=== PATIENT | male | born 1945 | race Caucasian/White ===

== ENCOUNTER 2019-01-24 19:23 | Inpatient (IN) | payer MEDICARE, OTHER ==
[~2019-01-24] VITALS: Ht 180.3 cm; Wt 64.0 kg
[2019-01-24] MEDS ORDERED: NACL 0.9% 1,000 ML IV SCH (20:04)
[2019-01-24 20:13] VITALS: BP 137/93
[2019-01-24 20:29] LABS: BASOPHILS % (AUTO) 0.1 % (0.0-2.0); EOSINOPHILS % (AUTO) 0.1 % (0.0-4.0); HEMATOCRIT 35.7 % (36-52); HEMOGLOBIN 11.7 g/dL (12.0-18.0); LYMPHOCYTES # (AUTO) 1.4 K/uL (2.0-11.5); LYMPHOCYTES % (AUTO) 10.4 % (20.5-51.1); MEAN CORPUSCULAR HEMOGLOBIN 28 pg (27-31); MEAN CORPUSCULAR HGB CONC 33 g/dL (33-37); MEAN CORPUSCULAR VOLUME 84.6 fL (80-94); MONOCYTES # (AUTO) 0.7 K/uL (0.8-1.0); MONOCYTES % (AUTO) 5.5 % (1.7-9.3); NEUTROPHILS % (AUTO) 83.9 % (42.2-75.2); PLATELET COUNT (AUTO) 409 K/uL (140-450); RED BLOOD CELL COUNT(AUTO) 4.23 MIL/uL (4.20-6.10); RED CELL DISTRIBUTION WIDTH 15.5 % (11.6-13.7); WHITE BLOOD COUNT (AUTO) 13.2 K/uL (4.8-10.8)
--- NOTE | 2019-01-24 20:29 | NUR ---
BIBA REPORTS BEING FOUND OUTSIDE ON SIDE OF ROAD COVERED IN FECES. NO MEDICAL COMPLAINTS. [facility] GRAVELY DISABLED HOLD. WOUNDS NOTED ON BL ARMS, LEGS, FEET, HANDS, SACRAL AREA AND PHONG AREA. PATIENT STATES HE HAS HAD THEM FOR A LONG TIME.
[2019-01-24 20:45] LABS: ANION GAP 13.2 (8-16); CARBON DIOXIDE 27.6 mmol/L (21-32); CHLORIDE 100 mmol/L (98-107); CREATININE 1.5 mg/dL (0.7-1.3); GLUCOSE 146 mg/dL (74-106); POTASSIUM 3.8 mmol/L (3.5-5.1); SODIUM SERUM 137 mmol/L (136-145); UREA NITROGEN, BLOOD 33 mg/dL (7-18)
[2019-01-24 20:51] LABS: ASPARTATE AMINOTRANSFERASE 25 U/L (15-37); TOTAL BILIRUBIN 0.5 mg/dL (0.0-1.0)
--- NOTE | 2019-01-24 21:45 | NUR ---
patient given urinal to provide urine sample.
[2019-01-24] MEDS ORDERED: cefTRIAXone 1,000 MG VIAL ONE (21:48)
[2019-01-24] MEDS ORDERED: NACL 0.9% 1,000 ML IV ONE (22:20)
[2019-01-24 22:27] LABS: APPEARANCE,URINE CLEAR (CLEAR); BILIRUBIN,URINE NEGATIVE (NEGATIVE); BLOOD, URINE 1+ (NEGATIVE); COLOR,URINE YELLOW (YELLOW); LEUKOCYTE ESTERASE ,URINE TRACE (NEGATIVE); NITRITE, URINE NEGATIVE (NEGATIVE); UGLUCOSE NEGATIVE (NEGATIVE)
[2019-01-24 22:42] LABS: RBC,URINE 0-5 /HPF (0-5); WBC,URINE 0-5 /HPF (0-5)
[2019-01-24 23:00] VITALS: BP 162/72
--- NOTE | 2019-01-24 23:00 | NUR ---
RECEIVED PT FROM ER VIA GURHUMERA REPORT GIVEN AT BED SIDE PT IS AAOX4 COOPERATIVE TO FOLLOW COMMANDS VERBALIZED NEEDED AND AT ROOM AIR 100% 02 SAT, IV ON LEFT AC GAUGE # 20 NS BOLUS INFUSING PT HAS MULTILLPLES SCABS AND OOPEN WOUNDS ON BILATERAL LOWER EXTREMITIES, RT BUTTOCK AND RT HIIIP AND GENITALES AND INTER LEGS WITH MULTILPLES SCRATCHES PICTURES WERE TAKEN IN ER SWAB NARES FOR MRSA SCREENING TAKEN AND SENT OT LAB PT IS ORIENTED TO THE FLOOR CALL LLIGHT WITHIN REACH,
--- NOTE | 2019-01-24 23:08 | NUR ---
Patient will be admitted to care of [facility]. Admited to Dr. Lamar. went to room 107-b. Belongings list completed. Report to cristina.
[2019-01-24] MEDS ORDERED: ACETAMINOPHEN 325 MG TAB PO PRN (23:25)
[2019-01-24] MEDS ORDERED: LORazepam 2 MG/ML VIAL IVP PRN (23:25)
[2019-01-24] MEDS ORDERED: ZOLPIDEM 5 MG TAB PO PRN (23:25)
[2019-01-24] MEDS ORDERED: MORPHINE SULFATE 2 MG/ML SYR IVP PRN (23:25)
[2019-01-24] MEDS ORDERED: BISACODYL 10 MG SUPP RC PRN (23:25)
[2019-01-24] MEDS ORDERED: POTASSIUM CHLORIDE 40 MEQ, LIDOCAINE 1% 25 MG in NACL 0.9% 250 ML IV PRN (23:25)
[2019-01-24] MEDS ORDERED: HYDROcodone/APAP 5/325 MG 1 TAB TAB PO PRN ×2 (23:25)
[2019-01-24] MEDS ORDERED: guaiFENesin DM 200/20 MG-10 ML 10 ML UDC PO PRN (23:25)
[2019-01-24] MEDS ORDERED: ALUMINUM HYD/MAG/SIMETHICONE 30 ML UDC PO PRN (23:25)
[2019-01-24] MEDS ORDERED: ONDANSETRON 4 MG/2 ML VIAL IVP PRN (23:25)
[2019-01-24] MEDS ORDERED: POTASSIUM CHLORIDE 10 MEQ TABER PO PRN (23:25)
[2019-01-24] MEDS ORDERED: IPRATROPIUM 0.02% 0.5 MG/2.5 ML NEBU INH PRN (23:25)
[2019-01-24] MEDS ORDERED: MAG SULF 2000 MG/WATER PREMIX 50 ML IV PRN (23:25)
[2019-01-24] MEDS ORDERED: DOCUSATE SODIUM 250 MG GELCAP PO PRN (23:25)
[2019-01-24] MEDS ORDERED: SODIUM PHOSPHATE 118 ML ENEM RC PRN (23:25)
[2019-01-24] MEDS ORDERED: ACETAMINOPHEN 650 MG SUPP RC PRN (23:25)
[2019-01-24] MEDS ORDERED: diphenhydrAMINE 50 MG/ML VIAL IVP PRN (23:25)
[2019-01-24] MEDS ORDERED: ALBUTEROL 0.083% 2.5 MG/3 ML NEBU INH PRN (23:25)
[2019-01-24] MEDS ORDERED: MAGNESIUM OXIDE 400 MG TAB PO PRN (23:25)
[2019-01-24] MEDS: cloNIDine 0.1 MG TAB PO PRN (23:36)
[2019-01-24] MEDS: CLINDAMYCIN 300 MG in DEXTROSE 5% 50 ML IV SCH (23:38)
[2019-01-24] MEDS: NACL 0.9% 1,000 ML IV SCH (23:39)
[2019-01-24] MEDS ORDERED: CLINDAMYCIN 600 MG/4 ML VIAL ONE (23:44)
--- NOTE | 2019-01-25 | NUR ---
LOWER EXTREMITIES OPEN WOUND WERE CLEANED WITH WATER AND MILD SOAP AND WRAPPED WITH NOT ADHESIVE DRESSING
[2019-01-25 01:00] VITALS: BP 111/58
--- NOTE | 2019-01-25 01:55 | NUR ---
PT SLEEPING WELL NOT DISTRESS NOTED IV ON LEFT AC INFUSING WELL PT HAS BEEN REPOSITIONED Q2H
--- NOTE | 2019-01-25 04:00 | NUR ---
SPONGE BATH GIVEN LINEN CHANGED REPOSITIONED NOT DISTRESS NOTED AT THIS TIME PT ON CLOSE MONITORING
[2019-01-25] MEDS ORDERED: CLINDAMYCIN 600 MG/4 ML VIAL ONE (05:34)
[2019-01-25] MEDS: CLINDAMYCIN 300 MG in DEXTROSE 5% 50 ML IV SCH ×3 (05:55→17:00)
[2019-01-25] MEDS: NACL 0.9% 1,000 ML IV SCH (05:59)
--- NOTE | 2019-01-25 06:30 | NUR ---
PT SLEEPING WELL, NOT DISTRESS NOTED IV ON LEFT AC INFUSING WELL PT WILL BE ENDORSED TO DAY SHIFT NURSE FOR CONTINUE OF CARE
--- NOTE | 2019-01-25 07:20 | NUR ---
RECEIVED REPORT FROM MOTOR VEHICLE ESCORT DRIVER NURSE, PT ASLEEP EASILY AWAKENED, CALM WITH NO ACUTE DISTRESS, REQUESTS, OR PAIN AT THIS TIME. IV SITE INTACT, INFUSING IVF PER MD ORDERS. AOX4, ASSESSED SKIN, OPEN AND CLOSED ABRASIONS AND SCABS TO BLE DRESSINGS CDI. .BUTTOCKS, SACRUM, GROIN, OPEN AND CLOSED ABRASIONS AND SCABS WELL TO THESE AREAS. ALL SAFETY PRECAUTIONS IN PLACE. WILL CONTINUE TO MONITOR.
--- NOTE | 2019-01-25 09:20 | NUR ---
PHYSICAL THERAPIST HERE TO WORK WITH PATIENT.
[2019-01-25] MEDS ORDERED: Z-GUARD PASTE TP PRN (11:30)
[2019-01-25] MEDS ORDERED: HYDRAGUARD CREAM TP PRN (11:30)
[2019-01-25] MEDS ORDERED: THERAHONEY GEL 42.5 GM TP PRN (11:30)
--- NOTE | 2019-01-25 11:40 | NUR ---
PT SLEEPING IN BED, BREATHING EQUAL AND UNLABORED WITH NO OBVIOUS SIGNS OF PAIN OR DISCOMFORT.
[2019-01-25] MEDS: THERAHONEY GEL 42.5 GM TP SCH (13:00)
[2019-01-25] MEDS: HYDRAGUARD CREAM TP SCH (13:44)
[2019-01-25] MEDS: Z-GUARD PASTE TP SCH (13:45)
--- NOTE | 2019-01-25 13:45 | NUR ---
WILL PERFORM WOUND CARE WITH ELVIS AFTER PODIATRY ASSESSES PATIENT TODAY.
--- NOTE | 2019-01-25 13:53 | NUR ---
WOUND CARE EVALUATION NOTE: REASON FOR EVALUATION: MULTIPLE WOUNDS WOUND SKIN ASSESSMENT DONE WITH THIS 73 Y/O MALE PT ADMITTED TO [facility] WITH INITIAL DX 51/50. PAST MEDICAL HX UN-KNOW. PT VERBALIZES AND STATED THAT HE HAS THE LEGS ULCERS FOR AN UN-KNOW PERIOD OF TIME FROM SOAKED SOCKS AND BOOTS. ALL ABOVE INFORMATION OBTAINED FROM PT. AND ADMISSION H&P. PT IS AWAKE. SKIN IS WARM AND DRY, BLE FEW HAIR GROWTH, NO EDEMA. DORSAL PEDAL PULSES DIMINISHED. ULCERATIONS X 10 TOES. INCONTINENT OF URINE AND BOWEL X1 DURING ASSESSMENT. PT SAID HE WILL START TO USE URINAL, URINAL PLACE AT BED SIDE. PLAN OF CARE DISCUSSED WITH PRIMARY RN. AND PT. DR. MARCUS VISIT PT AT BED SIDE DURING ASSESSMENT RECOMMENDATION DISCUSSED. STATED IT IS NOT VASCULAR ULCER, BELIEVES IT IS FROM BOOTS. INTEGUMENTARY: -CONTACT DERMATITIS TO R/L GROINS MULTIPLE RASHES AND DRY SCABS -LEFT HIP 1X1CM BROWN SCAB PHONG WOUND SKIN REDNESS EXTENDED TO LEFT BUTTOCK MAD -SEVERE MOISTURE ASSOCIATE DERMATITIS (MAD) TO: TO R/L POSTERIOR, MEDIAL THIGHS EXTENDED TO PERINEUM, RIGHT AND LEFT BUTTOCKS AND SCROTAL WITH LARGEST SKIN EROSION TO RIGHT BUTTOCK 5X3X0.2, WOUND BED PALE PINK WITH PHONG WOUND SKIN ERYTHEMA AND DENUDED -ULCER UN-STAGEABLE LEFT MEDIAL MALLEOLUS EXTENDED TO ACHILLES AND LEFT DORSAL FEET 12X9 CM, DEPTH UTD, WOUND BED INFECTED TISSUE 100% YELLOW SLOUGH TISSUE, MOIST, MILD ODOR, PHONG WOUND SKIN ERYTHEMA -ULCER UN-STAGEABLE RIGHT LATERAL MALLEOLUS EXTENDED TO ACHILLES AND RIGHT DORSAL FEET 16X10 CM, DEPTH UTD WOUND BED INFECTED TISSUE 100% BROWN SLOUGH TISSUE, MOIST, MILD ODOR, PHONG WOUND SKIN ERYTHEMA -ULCER RIGHT MEDIAL MALLEOLUS 5X6X 0.1CM, WOUND BED INFECTED TISSUE 100% PALE PINK TISSUE, MOIST, MILD ODOR, PHONG WOUND SKIN ERYTHEMA - ULCER UN-STAGEABLE X 10 TOES WITH PIN POINT FRICTION LIKED OPEN WOUNDS TO EACH TOE AND LARGEST MEASURE ON RIGHT 2ND DIGIT 2X1CM WOUND BED IS % YELLOW SLOUGH TISSUE, MOIST , MILD ODOR, PHONG WOUND SKIN ERYTHEMA - SACRALCOCCYX 2X2CM PRESSURE ULCER INJURY STAGE 1 NON-BLANCHABLE SKIN INTACT -RIGHT AND LEFT HEELS PRESSURE ULCER INJURY NON-BLANCHABLE SKIN INTACT WITH MUSHY SKIN RECOMMENDATIONS: -VENOUS AND ARTERIAL ULTRASOUND -PODIATRY/ SURGEON CONSULT FOR DEBRIDEMENT -APPLY HYDRAGUARD TO R/L GROINS DRY SCABS BID AND PRN IF SOILING -APPLY Z-GUARD TO R/L POSTERIOR, MEDIAL THIGHS EXTENDED TO PERINEUM, RIGHT AND LEFT BUTTOCKS AND SCROTAL BID AND PRN IF SOILING - CLEANSE LEFT AND RIGHT LATERAL MALLEOLUS EXTENDED TO ACHILLES AND DORSAL FEET WITH WOUND CLEANSING SOLUTION AND APPLY THERAHONEY GEL COVER WITH DRY DRESSING QD AND PRN IF SOILING - CLEANSE LEFT AND RIGHT DORSAL FEET AND 10 TOES WITH WOUND CLEANSING SOLUTION AND APPLY THERAHONEY GEL TO ULCERATIONS COVER WITH ADAPTIC DRESSING WRAP WITH KERLIX ROLLS LIGHTLY QMWF AND PRN IF SOILING -APPLY FORM DRESSING TO SACROCOCCYX Q7 DAYS AND PRN IF SOILING PREVENTION -APPLY HEEL PROTECTORS TO BOTH HEELS AT ALL TIMES -OFFLOAD BILATERAL HEELS BY PLACING PILLOWS UNDER CALVES UNLESS OTHERWISE CONTRAINDICATED -PRESSURE REDISTRIBUTION SURFACE THERAPY -TURN AND REPOSITION Q2H, OFFLOAD SACRALCOCCYX AND BUTTOCKS BY TURNING RIGHT AND LEFT -CONTINUE TO FOLLOW RD RECOMMENDATIONS ALL ABOVE RECOMMENDATIONS DISCUSSED WITH PRIMARY RN. WILL FOLLOW UP PT Q7-10 DAYS. PLEASE CONTACT WOUND CARE NURSE FOR ANY QUESTION AND CHANGE OF WOUND CONDITION.
--- NOTE | 2019-01-25 13:55 | NUR ---
NOTIFIED DR. MENDOZA [phone] OF NEW CONSULT ORDER- BLE WOUNDS. DR. MENDOZA AWARE.
[2019-01-25 16:00] VITALS: BP 128/71
--- NOTE | 2019-01-25 16:33 | NUR ---
PT RESTING IN BED, NO C/O PAIN OR DISCOMFORT. ALL SAFETY PRECAUTIONS IN PLACE, WILL CONTINUE TO MONITOR.
--- NOTE | 2019-01-25 17:36 | NUR ---
PT INQUIRING ABOUT WHEN PODIATRY WILL COME SEE HIM. INFORMED PATIENT THAT PODIATRY HAS ALREADY BEEN INFORMED TO CONSULT, POSSIBLY TODAY.
--- NOTE | 2019-01-25 19:12 | NUR ---
ENDORSED PLAN OF CARE TO OPERATOR CAVITY PUMP RN. PT IN STABLE CONDITION.
--- NOTE | 2019-01-25 19:21 | NUR ---
RECEIVED FROM AM RN IN BED SLEEPING. REFUSING TO TALK AND WAKE UP AT THIS TIME. PER AM RN PT. ABLE TO VERBALIZE SIMPLE NEEDS. CALL LIGHT WITH IN REACH. DX. CELLULITIS. NEEDS WILL BE ANTICIPATED AND WILL BE MET.
--- NOTE | 2019-01-25 21:58 | NUR ---
PT. AWAKE AT THIS TIME AND CLEANED UP BY LACE BURN OUT TENDER AND ME RT HAD A BIG BM AND PT. PLAYED WITH IT. ABLE TO VERBALIZE NEEDS WELL. RE-ORIENTED TO CALL LIGHT USE AND NOT TO PLAY WITH HIS BM. "OK" PILLOW SUPPORT TO BILATERAL LOWER EXTREMITIES AND WITH HEEL PROTECTORS IN PLACE. BED ALARM ON.
[2019-01-26] MEDS: CLINDAMYCIN 300 MG in DEXTROSE 5% 50 ML IV SCH ×5 (00:14→23:34)
--- NOTE | 2019-01-26 00:15 | NUR ---
NEW IVF SITE INSERTED TO LEFT FOREARM#22 RT OLD IVF SITE TO AC INFILTRATED. TOLERATED WELL. GOOD BLOOD RETURN. NO PAIN COMPLAINTS DONE.
[2019-01-26 00:23] VITALS: BP 129/57
[2019-01-26] MEDS: Z-GUARD PASTE TP SCH ×2 (01:00→11:40)
[2019-01-26] MEDS: HYDRAGUARD CREAM TP SCH ×2 (01:00→11:40)
[2019-01-26] MEDS: NACL 0.9% 1,000 ML IV SCH ×3 (02:12→23:02)
--- NOTE | 2019-01-26 02:16 | NUR ---
PT. SLEEPING. WOKE UP EASILY WHEN CALLED BY NAME OR TOUCHED. MADE PT. CHANGE POSITION RT IVF ALARMING . FOLLOWS REQUESTS . IVF SITE WITH GOOD BLOOD RETURN.
--- NOTE | 2019-01-26 04:30 | NUR ---
PT. AM PERSONAL HYGIENE RENDERED BY BILLBOARD POSTER. ABLE TO FOLLOW REQUESTS TO MOVE AND CHANGE POSITION . VERBALIZES WELL. CLEAR SPEECH. MAXIMUM CARE RENDERED AT THIS TIME RT WEAKNESS. BED ALARM ON.
[2019-01-26 07:20] LABS: ANION GAP 11.3 (8-16); CARBON DIOXIDE 26.5 mmol/L (21-32); CHLORIDE 105 mmol/L (98-107); GLUCOSE 103 mg/dL (74-106); POTASSIUM 3.8 mmol/L (3.5-5.1); SODIUM SERUM 139 mmol/L (136-145); UREA NITROGEN, BLOOD 20 mg/dL (7-18)
[2019-01-26 07:29] LABS: BASOPHILS % (AUTO) 0.3 % (0.0-2.0); EOSINOPHILS # (AUTO) 0.1 K/uL (0-0.4); EOSINOPHILS % (AUTO) 1.3 % (0.0-4.0); HEMATOCRIT 32.1 % (36-52); HEMOGLOBIN 10.6 g/dL (12.0-18.0); LYMPHOCYTES # (AUTO) 1.6 K/uL (2.0-11.5); LYMPHOCYTES % (AUTO) 14.9 % (20.5-51.1); MEAN CORPUSCULAR HEMOGLOBIN 28 pg (27-31); MEAN CORPUSCULAR HGB CONC 33 g/dL (33-37); MONOCYTES # (AUTO) 0.7 K/uL (0.8-1.0); MONOCYTES % (AUTO) 6.9 % (1.7-9.3); NEUTROPHILS # (AUTO) 8.3 K/uL (1.8-7.7); NEUTROPHILS % (AUTO) 76.6 % (42.2-75.2); PLATELET COUNT (AUTO) 370 K/uL (140-450); RED BLOOD CELL COUNT(AUTO) 3.78 MIL/uL (4.20-6.10); RED CELL DISTRIBUTION WIDTH 15.2 % (11.6-13.7); WHITE BLOOD COUNT (AUTO) 10.9 K/uL (4.8-10.8)
--- NOTE | 2019-01-26 07:30 | NUR ---
Received report from pm nurse Macy. Pt in bed, asleep, respirations even & nonlabored. Left hand IV intact with ongoing NS @ 75ml/hr. Call light within reach.
[2019-01-26 08:00] VITALS: BP 142/72
[2019-01-26] MEDS: THERAHONEY GEL 42.5 GM TP SCH (11:39)
--- NOTE | 2019-01-26 12:40 | NUR ---
Initiated wound tx at 1215. Pt c/o 03/04 pain to bilat feet wound sites during removal of old dressings. Pain meds administered then pt agreed to resume wound tx. Wound tx completed.
[2019-01-26 16:00] VITALS: BP 138/74
--- NOTE | 2019-01-26 19:30 | NUR ---
RECEIVED FROM AM RN IN BED SLEEPING. WAKES UP WHEN TOUCHED OR CALLED BY NAME. ABLE TO VERBALIZE SIMPLE NEEDS IN BULGARIAN WELL. NEEDS WILL BE ANTICIPATED AND WILL BE MET THIS SHIFT. 5150 STATUS RT GRAVELY DISABLED. CALL LIGHT WITH IN REACH AND BED ALARM ON.
--- NOTE | 2019-01-26 19:30 | NUR ---
REPORT GIVEN TO PM NURSE SHONDA. PT RESTING IN BED, AWAKE, NO C/O DISCOMFORT. LEFT FOREARM IV INTACT WITH ONGOING NS @ 75ML/HR. CALL LIGHT WITHIN REACH.
[2019-01-26 23:37] VITALS: BP 126/72
--- NOTE | 2019-01-26 23:39 | NUR ---
PT. SLEEPING. WAKES UP EASILY WHEN TOUCHED OR CALLED BY NAME. ABLE TO VERBALIZE SIMPLE NEEDS. NO SOB. IVF SITE TO LEFT HAND #[address] AND PATENT. GOOD BLOOD RETURN. BED ALARM ON.
[2019-01-27] VITALS: BP 126/72
[2019-01-27] MEDS: Z-GUARD PASTE TP SCH ×2 (01:00→13:00)
[2019-01-27] MEDS: HYDRAGUARD CREAM TP SCH ×2 (01:00→13:00)
--- NOTE | 2019-01-27 03:00 | NUR ---
SLEEPING. NO RESTLESSNESS. CALL LIGHT WITH IN REACH.
--- NOTE | 2019-01-27 04:27 | NUR ---
AM PERSONAL HYGIENE RENDERED . SLEPT WELL THIS SHIFT. NO RESTLESSNESS. PT. ABLE TO VERBALIZE SIMPLE NEEDS. DENIES PAIN. IVF SITE INTACT AND PATENT.
[2019-01-27] MEDS: CLINDAMYCIN 300 MG in DEXTROSE 5% 50 ML IV SCH ×3 (05:09→18:23)
--- NOTE | 2019-01-27 06:27 | NUR ---
PT. COMFORTABLE. AWAKE AND CHANGING POSITION . PT. INDEPENDENT IN TURNING SELF. ABLE TO ANSWER SIMPLE QUESTIONS. PROVIDED WITH SNACK RT HUNGRY. WILL ENDORSE TO AM RN FOR CONTINUITY OF CARE.
--- NOTE | 2019-01-27 07:20 | NUR ---
Received report from pm nurse Macy. Pt asleep in bed, respirations even & nonlabored. L forearm IV intact with ongoing NS @ 75ml/hr. Call light within reach.
[2019-01-27 08:00] VITALS: BP 152/76
--- NOTE | 2019-01-27 11:45 | NUR ---
Pt in semi-fowlers in bed, no c/o pain/discomfort, respirations even & nonlabored. BLE wound dressings clean, dry, & intact with mild odor. Left forearm IV intact with ongoing NS @ 75ml/hr. Call light within reach.
[2019-01-27] MEDS: THERAHONEY GEL 42.5 GM TP SCH (13:00)
--- NOTE | 2019-01-27 13:30 | NUR ---
Dr. Pham came in to see pt. New order received for CBC & BMP for tomorrow am. Orders noted & carried out. Per Dr. Pham, no wound cx needed.
[2019-01-27 16:00] VITALS: BP 138/72
[2019-01-27] MEDS: NACL 0.9% 1,000 ML IV SCH (18:24)
--- NOTE | 2019-01-27 19:12 | NUR ---
Report given to pm nurse Bonnie.
--- NOTE | 2019-01-27 19:13 | NUR ---
RECEIVED FROM AM RN IN BED AWAKE, A o X 4. PT WANTING TO GO OUT OF BED. ASSISTED IN BED FOR BOWEL MVT, STILL W/ WOUNDS IN BILATERAL FOOT AND ANKLE W/ DRESSING IN PLACE.W/ MULTIPLE WOUNDS IN SACRAL BUTTOCKS. CLEANED PT AND TURNED HIM TO SIDE. 5150 STATUS RT GRAVELY DISABLED. FALL RISK PRECAUTION. CALL LIGHT WITH IN REACH AND BED ALARM ON.
[2019-01-27 20:00] VITALS: BP 140/70
--- NOTE | 2019-01-27 21:26 | NUR ---
PT C/O OF ITCHINESS ON THE BUTTOCKS, BILATERAL BUTTOCKS MULTIPLE ABRASION LEFT BUTTOCKS- WOUND 1CM X 1 CM X .5 CM. PHOTO TAKEN
[2019-01-28] MEDS: CLINDAMYCIN 300 MG in DEXTROSE 5% 50 ML IV SCH ×4 (00:35→17:03)
[2019-01-28] MEDS: HYDRAGUARD CREAM TP SCH ×2 (01:36→12:00)
[2019-01-28] MEDS: Z-GUARD PASTE TP SCH ×2 (01:37→12:00)
[2019-01-28 04:00] VITALS: BP 187/94
--- NOTE | 2019-01-28 04:27 | NUR ---
GAVE CLONIDINE AT 0427 ONE TIME ONLY, REASSESSMENT DUE AT 4458
[2019-01-28] MEDS: cloNIDine 0.1 MG TAB PO PRN ×2 (04:57→06:41)
--- NOTE | 2019-01-28 04:57 | NUR ---
BP 187/94, HR 61. GIVEN CLONIDINE ORDERED
--- NOTE | 2019-01-28 06:27 | NUR ---
BP AT 151/81, CT 58
[2019-01-28] MEDS: NACL 0.9% 1,000 ML IV SCH ×2 (07:20→20:39)
--- NOTE | 2019-01-28 07:22 | NUR ---
RECEIVED BEDSIDE REPORT FROM PLATFORM SUPERVISOR RN. PT IS RESTING IN BED, AOX3, CALM AND COOPERATIVE. NO C/O PAIN OR DISCOMFORT AT THIS TIME. LUNGS CTA. HEART RHYTHM REGULAR. BEDREST. USES URINAL AT BEDSIDE. WOUNDS THROUGHOUT, DRESSINGS C/D/I-SEE WOUND ASSESSMENT. B/L HEEL PROTECTORS IN PLACE. ALL SAFETY PRECAUTIONS IN PLACE, WILL CONTINUE TO MONITOR.
[2019-01-28 07:37] LABS: BASOPHILS % (AUTO) 0.5 % (0.0-2.0); EOSINOPHILS # (AUTO) 0.2 K/uL (0-0.4); EOSINOPHILS % (AUTO) 1.5 % (0.0-4.0); HEMATOCRIT 32.1 % (36-52); HEMOGLOBIN 10.7 g/dL (12.0-18.0); LYMPHOCYTES # (AUTO) 1.5 K/uL (2.0-11.5); LYMPHOCYTES % (AUTO) 13.5 % (20.5-51.1); MEAN CORPUSCULAR HEMOGLOBIN 28 pg (27-31); MEAN CORPUSCULAR HGB CONC 34 g/dL (33-37); MONOCYTES # (AUTO) 0.7 K/uL (0.8-1.0); MONOCYTES % (AUTO) 6.5 % (1.7-9.3); NEUTROPHILS # (AUTO) 8.5 K/uL (1.8-7.7); PLATELET COUNT (AUTO) 377 K/uL (140-450); RED BLOOD CELL COUNT(AUTO) 3.82 MIL/uL (4.20-6.10); RED CELL DISTRIBUTION WIDTH 15.1 % (11.6-13.7); WHITE BLOOD COUNT (AUTO) 10.8 K/uL (4.8-10.8)
[2019-01-28 08:00] VITALS: BP 157/84
[2019-01-28 08:33] LABS: ANION GAP 9.9 (8-16); CARBON DIOXIDE 28.9 mmol/L (21-32); CHLORIDE 105 mmol/L (98-107); GLUCOSE 89 mg/dL (74-106); POTASSIUM 3.8 mmol/L (3.5-5.1); SODIUM SERUM 140 mmol/L (136-145); UREA NITROGEN, BLOOD 19 mg/dL (7-18)
--- NOTE | 2019-01-28 08:52 | NUR ---
PT SITTING UP IN BED, WATCHING TV. NO S/S DISTRESS. ALL SAFETY PRECAUTIONS IN PLACE, WILL CONTINUE TO MONITOR.
--- NOTE | 2019-01-28 09:45 | NUR ---
PT HAD FORMED BM. CNAS AT BEDSIDE TO CLEAN PT. WILL APPLY FOAM DRESSING TO SACROCOCCYX WHEN PT IS CLEANED.
--- NOTE | 2019-01-28 10:32 | NUR ---
WOUND CARE COMPLETED- PER WOUND CARE ORDERS.
--- NOTE | 2019-01-28 11:30 | NUR ---
JANET IS HERE FROM [facility], NOTIFIED HER TO FIND PLACEMENT FOR THIS PATIENT, WILL CALL FOR UPDATE PER JANET.
--- NOTE | 2019-01-28 11:50 | NUR ---
ADMINISTERED SCHEDULED MEDICATIONS PER MD ORDERS. PT RESTING IN BED, AWAKE AND ALERT. ALL SAFETY PRECAUTIONS IN PLACE, WILL CONTINUE TO MONITOR.
[2019-01-28] MEDS: THERAHONEY GEL 42.5 GM TP SCH (12:00)
--- NOTE | 2019-01-28 12:31 | NUR ---
PT RESTING IN BED, WATCHING TV. ALL SAFETY PRECAUTIONS IN PLACE, WILL CONTINUE TO MONITOR.
--- NOTE | 2019-01-28 14:58 | NUR ---
PT RESTING IN BED, NO S/S DISTRESS. ALL SAFETY PRECAUTIONS IN PLACE, WILL CONTINUE TO MONITOR.
--- NOTE | 2019-01-28 15:30 | NUR ---
CALLED [facility] [phone] SPOKE TO SLIM FOR SNF PLACEMENT [facility], FAXED CLINICALS AND PATIENT INFORMATION TO [phone]. SLIM SAID SHE WILL CALL IF BED IS AVAILABLE.
--- NOTE | 2019-01-28 15:35 | NUR ---
CALLED [facility] [phone] SPLOKE WITH [facility] FOR [facility]ED PLAC[facility], FAXED PATIENT INFORMATION AND CLINICALS TO [phone]. INGE SAID SHE WILL CALL IF BED IS AVAILABLE.
[2019-01-28 16:00] VITALS: BP 154/88
--- NOTE | 2019-01-28 17:05 | NUR ---
SCHEDULED MEDICATIONS ADMINISTERED. PT RESTING IN BED, NO C/O PAIN OR DISCOMFORT. WILL CONTINUE TO MONITOR.
--- NOTE | 2019-01-28 19:17 | NUR ---
ENDORSED POC TO REHAB MANAGER RN. PT IN STABLE CONDITION.
--- NOTE | 2019-01-28 19:18 | NUR ---
RECEIVED BEDSIDE REPORT FROM AM SHIFT RN. PT IS RESTING IN BED, AOX3, CALM AND COOPERATIVE. NO C/O PAIN OR DISCOMFORT AT THIS TIME. NO SOB NOR RESPIRATORY DISTRESS NOTED. HEART RHYTHM REGULAR. BEDREST. WITH WOUNDS DRESSINGS DRESSING IN PLACE. B/L HEEL PROTECTORS IN PLACE. ALL SAFETY PRECAUTIONS IN PLACE, WILL CONTINUE TO MONITOR.
[2019-01-28 20:00] VITALS: BP 139/88
--- NOTE | 2019-01-28 21:24 | NUR ---
PT RESTING IN BED. VOIDED 1X ,TURNED PT TO SIDE. FREQUENT CHECKS DONE.
[2019-01-29] MEDS: CLINDAMYCIN 300 MG in DEXTROSE 5% 50 ML IV SCH ×3 (00:33→11:13)
[2019-01-29] MEDS: HYDRAGUARD CREAM TP SCH ×2 (00:34→12:22)
[2019-01-29] MEDS: Z-GUARD PASTE TP SCH ×2 (00:35→12:23)
--- NOTE | 2019-01-29 01:00 | NUR ---
DRESSING CHANGED ON LEFT ANKLE/FEET,RIGHT ANKLE/FEET NOT SOILED. PLACED TREATMENT ON THE BUTTOCKS, SACRUM AND PERINEAL/GROIN. PT TOLERATED PROCEDURE. WITH MINIMAL PAIN
--- NOTE | 2019-01-29 03:39 | NUR ---
BP= 167/78 HR 59, WILL GIVE CLONIDINE ORDERED.WILL MONITOR
[2019-01-29] MEDS: cloNIDine 0.1 MG TAB PO PRN (03:42)
[2019-01-29 03:49] VITALS: BP 167/76
--- NOTE | 2019-01-29 06:54 | NUR ---
PT SLEEPING IN BED BUT AROUSABLE BY NAME.PATIENT NOT IN RESPIRATORY DISTRESS, NO C/O OF PAIN. STABLE CONDITION AT THIS TIME. WILL ENDORSE TO NEXT SHIFT FOR CONTINUITY OF CARE.
--- NOTE | 2019-01-29 06:57 | NUR ---
CHANGED PT. TURNED PT FREQUENTLY, HOURLY ROUNDS DONE.
--- NOTE | 2019-01-29 06:58 | NUR ---
PT ASLEEP IN BED COMFORTABLE, WITH PILLOWS OFFLOADED PRESSURE SORES,NO PAIN AT THIS TIME . PT IN STABLE CONDITION AT THIS TIME. WILL ENDORSE TO NEXT SHIFT FOR CONTINUITY OF CARE.
--- NOTE | 2019-01-29 07:30 | NUR ---
RECEIVED BEDSIDE REPORT FROM SENIOR PLANNING ANALYST RN. PT IS RESTING IN BED, AOX3, CALM AND COOPERATIVE. NO C/O PAIN OR DISCOMFORT AT THIS TIME. LUNGS CTA. HEART RHYTHM REGULAR. BEDREST. USES URINAL AT BEDSIDE. WOUNDS THROUGHOUT, DRESSINGS ARE C/D/I-SEE WOUND ASSESSMENT. B/L HEEL PROTECTORS IN PLACE. ALL SAFETY PRECAUTIONS IN PLACE, WILL CONTINUE TO MONITOR.
[2019-01-29 08:00] VITALS: BP 149/83
[2019-01-29] MEDS: NACL 0.9% 1,000 ML IV SCH ×2 (10:00→11:16)
--- NOTE | 2019-01-29 10:29 | NUR ---
Director Of Scout Work Note: assisted facility follow up: Per Tanika from [facility] (two [facility]fs, same company) , they will review inquiry and she will call me back with decision on whether they can accept patient or not. Per Esther from [facility] , they do not have any beds available at this time. I faxed inquiries to Wilma Jauregui, [facility], and [facility].
--- NOTE | 2019-01-29 11:18 | NUR ---
SCHEDULED MEDICATIONS ADMINISTERED. PT IN STABLE CONDITION. RESTING IN BED, CALM, COOPERATIVE. NO C/O PAIN OR DISCOMFORT.
--- NOTE | 2019-01-29 12:01 | NUR ---
Tailings Dam Pumper Note: [facility] facility placement follow up: Per Riya from [facility] , patient was at their facility in December 2018 and signed AMA. She reported she would have to evaluate him in person and at today she is not able to. She told me she can come tomorrow to evaluate patient. Per Manny from [facility] , they will review inquiry and she will call me back. Per Maribel from [facility] , they don't have any male beds available at this time. Pending response from Jennifer at [facility] Pending response from Xavier at [facility] Addendum: 01/29/19 at 1315 by Maria Maradiaga SS Per from Xavier at [facility] , they cannot accept patient due to 51/50 hold and homelessness.
[2019-01-29] MEDS: THERAHONEY GEL 42.5 GM TP SCH (12:23)
--- NOTE | 2019-01-29 12:39 | NUR ---
PATIENT SITTING UP IN BED, EATING LUNCH. NO S/S DISTRESS. ALL SAFETY PRECAUTIONS IN PLACE, WILL CONTINUE TO MONITOR.
--- NOTE | 2019-01-29 14:01 | NUR ---
PT SITTING UP AT SIDE OF BED, PERFORMING LEG EXERCISES. BUILDING MECHANIC AT BEDSIDE TO MONITOR.
--- NOTE | 2019-01-29 14:10 | NUR ---
ICT QUALITY ASSURANCE ENGINEER STATES PT BACK IN BED, BED ALARM ACTIVATED. BED LOCKED & LOW.
[2019-01-29 16:00] VITALS: BP 156/85
--- NOTE | 2019-01-29 16:15 | NUR ---
PT SITTING IN BED, WATCHING TV. NO C/O PAIN OR DISCOMFORT. WILL CONTINUE TO MONITOR.
--- NOTE | 2019-01-29 16:50 | NUR ---
Bottle Dealer Note: Per Briana from [facility] , they will review inquiry and call me back. Per Jennifer at [facility] , they don't have any correction beds available at this time.
--- NOTE | 2019-01-29 19:17 | NUR ---
ENDORSED POC TO FIRE SUPPORT MAN RN. PT IN STABLE CONDITION.
--- NOTE | 2019-01-29 19:18 | NUR ---
RECD. RESTING IN BED, AWAKE, A/OX3, RESPIRATION EVEN AND UNLABORED. IV OF NS AT 75 ML/HR INFUSING LEFT FOREARM G22. BILATERAL ANKLE ULCERS COVERED WITH DRESSING, DRY AND INTACT, BOTH FEET WITH HEEL PROTECTORS. PLAN OF CARE FOR THE SHIFT DISCUSSED. ENCOURAGED TO ALTERNATELY TURN TO SIDES. VERBALIZED UNDERSTANDING. SAFETY MEASURES ENFORCED, BED ON ALARM, CALL LIGHT IN REACH. USES THE URINAL. DENIES PAIN 0/10.
--- NOTE | 2019-01-30 | NUR ---
IV INFILTRATED, NEW IV LINE INSERTED LEFT HAND G20.
[2019-01-30 01:00] VITALS: BP 174/82
[2019-01-30] MEDS: HYDRAGUARD CREAM TP SCH ×2 (01:05→13:00)
[2019-01-30] MEDS: Z-GUARD PASTE TP SCH ×2 (01:05→13:00)
[2019-01-30] MEDS: cloNIDine 0.1 MG TAB PO PRN ×3 (01:08→23:14)
--- NOTE | 2019-01-30 01:30 | NUR ---
SPONGE BATH GIVEN, REPOSITIONED AND MADE COMFORTABLE IN BED WITH PILLOWS.
[2019-01-30] MEDS: NACL 0.9% 1,000 ML IV SCH ×2 (04:00→12:40)
--- NOTE | 2019-01-30 04:00 | NUR ---
SLEEPING COMFORTABLY IN BED.
--- NOTE | 2019-01-30 06:50 | NUR ---
CONDITIONED REMAIN STABLE. SAFETY MAINTAINED DURING SHIFT. ALL NEEDS ATTENDED. WILL ENDORSE TO AM NURSE FOR CONTINUITY OF CARE.
--- NOTE | 2019-01-30 07:10 | NUR ---
RECEIVED P[T FROM PILLOWCASE SEWER NURSERENETTA, PT IS AWAKE AND LY9ING ON THE BED, WITH CALL LIGHT WITHIN REACH, PT HAS AN IV LINE ON THE LEFT FA G.22 WITH NS AT 75ML/HR INFUSING, PT IS AOX3, WITH BILATERAL FOOT BOOTS IN PLACE, ON ROOM AIR AND NO SIGN OF DISTRESS NOTED, PT DENIES ANY PAIN AT THIS TIME. WILL MONITOR PT.
[2019-01-30 08:00] VITALS: BP 172/102
--- NOTE | 2019-01-30 08:00 | NUR ---
PT IS AWAKE AND SEATED ON THE BED, VITAL SIGNS TAKEN AND BP IS 172/102, PULSE IS 66, TEMPERATURE IS 98.4, RESPIRATION IS 18/MIN AND O2 SATURATION IS 100%, PT DENIES PAIN AND NO SIGN OF DISTRESS NOTED. WILL MONITOR PT.
--- NOTE | 2019-01-30 08:21 | NUR ---
PT IS AWAKE AND SEATED ON THE BED, BP MEDICATION WAS GIVEN FOR THE BP RESULT OF 172/102, PULSE IS 66, PT DENIES PAIN AND WAS ABLE TO TOLERATED THE MEDICATION. WILL RE-ASSESS BP AND MONITOR PT.
--- NOTE | 2019-01-30 09:50 | NUR ---
PT'S BP WAS RE-ASSESS RESULT IS 148/89, PULSE IS 63, NO SIGN OF DISTRESS NOTED AND WILL MONITOR PT.
--- NOTE | 2019-01-30 11:26 | NUR ---
Quality Assurance Analyst Note: Per Jaron from [facility] , he requested I fax inquiry again. I faxed inquiry. Per Manny from [facility] , they cannot accept patient due to 51/50 hold and behavior. I told her if they can please consider coming to hospital to evaluate patient. She stated they do not have any male beds at this time and she will ask their public service administrator Danielle if Dee from their facility can come to evaluate patient. Per Stephanie from [facility] , they cannot accept due to behavior. Per Riya from [facility] , she spoke with their public service administrator Jane and they cannot accept patient because patient signed AMA from their facility previously. Pending response from [facility]
[2019-01-30] MEDS: THERAHONEY GEL 42.5 GM TP SCH (13:00)
--- NOTE | 2019-01-30 13:10 | NUR ---
PT'S BILATERAL FEET WITH OPEN WOUND WERE ASSESSED AND CLEANED, MEDICATED AND REINFORCED WITH ADAPTIC DRESSING AND LISSY GAUZE.
--- NOTE | 2019-01-30 13:53 | NUR ---
Certified Lactation Educator Note: [facility] facility follow up: Per Radha from [facility] and [facility] (two snfs, same company) , they don�t have group home beds available. Per Jaron from [facility] , they don�t have group home beds available. Per Dana from [facility] , they don�t have curator herbarium beds available.
[2019-01-30 16:00] VITALS: BP 158/88
--- NOTE | 2019-01-30 16:14 | NUR ---
Textile Screen Maker Note: Per Pearl from [facility] , they don't have any beds available at this time. I called and left a message for Juana at [facility] / . Per Michelle at [facility] , no longterm beds. Per Jason at [facility] , no male beds.
--- NOTE | 2019-01-30 16:28 | NUR ---
Wealth Management Manager Note: Esther Bond requested inquiry to be faxed. I faxed it, fax number
--- NOTE | 2019-01-30 16:43 | NUR ---
PT IS AWAKE AND SEATED ON THE BED, VITAL SIGNS TAKEN AND IS WITHIN NORMAL LIMITS. NO SIGN OF DISTRESS NOTED AND WILL MONITOR PT.
--- NOTE | 2019-01-30 19:10 | NUR ---
ENDORSED PT TO CONTINUOUS IMPROVEMENT MANAGER NURSESHONDA FOR CONTINUITY OF CARE. PT IS STABLE AT THIS TIME.
--- NOTE | 2019-01-30 19:30 | NUR ---
RECEIVED FROM AM RN IN BED SITTING UP AND WATCHING TV. CALL LIGHT WITH IN REACH. ABLE TO CARRY CONVERSATION WITH ME WELL. USES URINAL TO URINATE. BED ALARM ON. IVF SITE INTACT AND NO INFILTRATION. CARE PLANS FOR THE NIGHT DISCUSSED WITH HIM AND RE-ORIENTED TO CALL LIGHT USE. DX. OF GRAVELY DISABLED AND CELLULITIS.
--- NOTE | 2019-01-30 22:40 | NUR ---
ENDORSED TO THE NEXT RN FOR CONTINUITY OF CARE AWAKE AND ALERT. NO PAIN COMPLAINTS AT THIS TIME.
--- NOTE | 2019-01-30 22:40 | NUR ---
RECEIVED REPORT FROM DOCTOR OF NURSING PRACTICE NURSE SHONDA FOR CONTINUITY OF CARE.
--- NOTE | 2019-01-30 23:14 | NUR ---
ADMINISTERED CLONIDINE PRN. BP 167/85. EDUCATED ON SIDE EFFECTS. VERBALIZED UNDERSTANDING. TOLERATED WELL. WILL REASSESS BP 0044. APPLIED THERAHONEY TO SCABBED TOES. WILL CONTINUE TO MONITOR.
[2019-01-30 23:46] VITALS: BP 167/85
[2019-01-31] MEDS: Z-GUARD PASTE TP SCH ×2 (00:03→12:57)
[2019-01-31] MEDS: HYDRAGUARD CREAM TP SCH ×2 (00:03→12:56)
--- NOTE | 2019-01-31 00:45 | NUR ---
REASSESS BP 155/94 60P. NO COMPLAINTS AT THIS TIME. WILL CONTINUE TO MONITOR. CALL LIGHT WITHIN REACH.
[2019-01-31] MEDS: NACL 0.9% 1,000 ML IV SCH ×2 (00:46→14:41)
--- NOTE | 2019-01-31 01:36 | NUR ---
PT SLEEPING IN BED. NO SIGNS OF DISTRESS OR DISCOMFORT. EASILY AROUSABLE. NO COMPLAINTS AT THIS TIME. WILL CONTINUE TO MONITOR. CALL LIGHT WITHIN REACH.
--- NOTE | 2019-01-31 03:06 | NUR ---
PT CURRENTLY SLEEPING IN BED. NO SIGNS OF DISTRESS OR DISCOMFORT. EASILY AROUSABLE. NO COMPLAINTS AT THIS TIME. WILL CONTINUE TO MONITOR. CALL LIGHT WITHIN REACH.
--- NOTE | 2019-01-31 04:54 | NUR ---
PT IN BED SLEEPING. NO SIGNS OF DISTRESS OR DISCOMFORT. EASILY AROUSABLE. NO COMPLAINTS AT THIS TIME. WILL CONTINUE TO MONITOR. CALL LIGHT WITHIN REACH.
--- NOTE | 2019-01-31 06:10 | NUR ---
PT SLEEPING IN BED COMFORTABLY. NO SIGNS OF RESP DISTRESS. EASILY AROUSABLE. WILL CONTINUE TO MONITOR. CALL LIGHT WITHIN REACH.
--- NOTE | 2019-01-31 07:28 | NUR ---
ENDORSED PT TO AM SHIFT RN CELI. PT SLEEPING. EASILY AROUSABLE. IN STABLE CONDITION.
--- NOTE | 2019-01-31 07:29 | NUR ---
RECEIVED BEDSIDE REPORT FROM RN SUMMER. PT STABLE, SLEEPING, BUT EASILY AROUSABLE. NO SIGNS OF DISTRESS NOTED. NO REDNESS, SWELLING, OR INFLAMMATION NOTED ON IV SITE. CALL TOUSSAINT WITHIN REACH. BED IN LOWEST POSITION, BED ALARM ON. SAFETY MEASURES IN PLACE. PLAN OF CARE REVIEWED.
[2019-01-31 08:00] VITALS: BP 137/91
--- NOTE | 2019-01-31 08:30 | NUR ---
PT AT THE BEDSIDE.
--- NOTE | 2019-01-31 10:20 | NUR ---
RECEIVED RECOMMENDATION FROM DIETITIVIVIANA DAVIS FOR VITAMIN C 500MG BID.
--- NOTE | 2019-01-31 10:23 | NUR ---
Reeler Operator Note: [facility] Suzie from their facility will come today and evaluate patient around 10:45am, patient's nurse Morena Ace made aware of this.
--- NOTE | 2019-01-31 11:05 | NUR ---
LINENS AND GOWN CHANGED. PT TOLERATED WELL.
[2019-01-31] MEDS: THERAHONEY GEL 42.5 GM TP SCH (12:57)
--- NOTE | 2019-01-31 13:10 | NUR ---
PT STABLE, WATCHING T.V. NO OTHER NEEDS AT THIS TIME.
--- NOTE | 2019-01-31 13:58 | NUR ---
Still Cleaner Note: Suz[facility] from [facility] came to [facility]. She stated she will refer patient to their sister facility, [facility] . She stated she will call me back later today and provide me with an update.
--- NOTE | 2019-01-31 13:59 | NUR ---
01/31/19 RD INITIAL ASSESSMENT COMPLETED PLEASE REFER TO NUTRITION ASSESSMENT UNDER CARE ACTIVITY FOR ESTIMATED NUTRITIONAL NEEDS. 1. CONTINUE REGULAR DIET TOLERATED 2. RECOMMEND MILDRED BID 3. HEALTH SHAKES QD WILL BE PROVIDED BY [facility] 4. RD PROVIDED WOUND HEALING NUTRITION EDUCATION HANDOUT. PT ACCEPTED 5. RD TO FOLLOW-UP 3-5 DAYS, MODERATE RISK SUSAN GUDINO RD
--- NOTE | 2019-01-31 15:40 | NUR ---
VITAL SIGNS TAKEN, PT STABLE. NO OTHER NEEDS AT THIS TIME.
[2019-01-31 16:00] VITALS: BP 126/75
--- NOTE | 2019-01-31 16:00 | NUR ---
Chef Concierge Note: I faxed inquiry to [facility]. I called and spoke with Kaley Mosquera from [facility] / , she stated they don't have intermediate frame tender beds available at this time but she will refer patient to their sister facility [facility] .
--- NOTE | 2019-01-31 17:45 | NUR ---
WOUND CARE PROVIDED. PT TOLERATED WELL.
--- NOTE | 2019-01-31 19:05 | NUR ---
ENDORSED PT TO KATJA GABRIEL FOR CONTINUITY OF CARE. PT STABLE.
--- NOTE | 2019-01-31 19:06 | NUR ---
RECEIVED BEDSIDE REPORT FROM DAY SHIFT NURSE. PT IN STABLE CONDITION. NO S/S SOB OR RESPIRATORY DISTRESS NOTED. DENIES PAIN OR DISCOMFORT. IV SITE ON R HAND 22G, RUNNING WITH NS @ 75MLS/HR, INTACT, PATENT, AND ASYMPTOMATIC. SAFETY MEASURES IN PLACE, PLAN OF CARE REVIEWED. BED IN LOW POSITION, CALL LIGHT WITHIN REACH. WILL CONTINUE TO MONITOR.
[2019-01-31] MEDS: ASCORBIC ACID 500 MG TAB PO SCH (20:33)
--- NOTE | 2019-01-31 20:33 | NUR ---
GIVEN VITAMIN C MD ORDERED. PT TOLERATED WELL.
--- NOTE | 2019-01-31 22:03 | NUR ---
PT SLEEPING COMFORTABLE. NO S/S OF RESPIRATORY DISTRESS NOTED. NEW BAG OF NS 1000ML HANG.WILL CONTINUE TO MONITOR.
[2019-02-01] VITALS: BP 152/82
--- NOTE | 2019-02-01 | NUR ---
PT SLEEPING IN BED. NO S/S OF ANY DISCOMFORT. VITAL SIGN CHECKED. PT IN STABLE CONDITION WITHIN PT'S BASELINE. WILL CONTINUE TO MONITOR.
[2019-02-01] MEDS: Z-GUARD PASTE TP SCH ×2 (01:02→13:00)
[2019-02-01] MEDS: HYDRAGUARD CREAM TP SCH ×2 (01:02→13:00)
--- NOTE | 2019-02-01 01:02 | NUR ---
APPLIED Z-GUARD TO R/L POSTERIOR, MEDIAL THIGHS EXTENDED TO PERINEAL AREA, RIGHT AND LEFT BUTTOCKS AND SCROTAL. CHANGED DRESSING. APPLIED HYDRAGUARD TO R/L GROINS. PT TOLERATED WELL.
--- NOTE | 2019-02-01 03:20 | NUR ---
PT IN STABLE CONDITION, SLEEPING IN BED COMFORTABLY. NO S/S OF RESPIRATORY DISTRESS NOTED. BED IN LOW POSITION. CALL LIGHT WITHIN REACH.
[2019-02-01] MEDS: NACL 0.9% 1,000 ML IV SCH ×2 (04:40→18:00)
--- NOTE | 2019-02-01 05:00 | NUR ---
PT SLEEPING IN BED COMFORTABLY. NO S/S OF SOB OR RESPIRATORY DISTRESS NOTED. BREATHING EVENLY AND UNLABORED. WILL CONTINUE TO MONITOR.
--- NOTE | 2019-02-01 07:23 | NUR ---
ENDORSED PATIENT TO DAY SHIFT NURSE. PT IN STABLE CONDITION.
--- NOTE | 2019-02-01 07:24 | NUR ---
RECEIVED BEDSIDE REPORT FROM KATJA GABRIEL. PATIENT ON MED SURGE AND STANDARD PRECAUTIONS IN PLACE. PATIENT ON ROOM AIR, NO DISTRESS NOTED. PATIENT AAOX3, COMMUNICATES APPROPRIATELY. WOUNDS ON BL FEET AND SACRAL ULCER. IV ON L H 22 G INFUSING NS AT 75, IV ASYMPTOMATIC PATENT AND INTACT. FALL RISK PROTOCOL IN PLACE. BED IN LOW POSITON, CALL LIGHT WITHIN REACH, SIDE RAILS X2 UP
[2019-02-01 08:00] VITALS: BP 160/98
[2019-02-01] MEDS: ASCORBIC ACID 500 MG TAB PO SCH ×2 (09:20→20:25)
--- NOTE | 2019-02-01 09:28 | NUR ---
ADMINISTERED SCHEDULED MEDS. PATIENT TOLERATED WELL
--- NOTE | 2019-02-01 11:16 | NUR ---
CONTACTED DR. KRISHNAN'S EXCHANGE REGARDING THE RE-EVALUATION. AWAITING FOR CALL BACK. YENNIFER SR MADE AWARE.
--- NOTE | 2019-02-01 12:00 | NUR ---
PATIENT EATING LUNCH, ON ROOM AIR, NO DISTRESS NOTED
[2019-02-01] MEDS: THERAHONEY GEL 42.5 GM TP SCH (13:00)
--- NOTE | 2019-02-01 13:30 | NUR ---
WOUNDS CLEANSED AND DRESSINGS CHANGED, PATIENT TOLERATED WELL
--- NOTE | 2019-02-01 15:32 | NUR ---
PATIENT SLEEPING, ON ROOM AIR, NO DISTRESS NOTED
--- NOTE | 2019-02-01 15:51 | NUR ---
Fuel Oil Clerk Note: Late entry for 01/31/19: I met with patient at bedside to discuss tentative discharge plan and obtain information from him. He has been homeless since 1999 and is agreeable with going to snf upon discharge. He stated he receives about $1000 from SSI per month. He is also in agreement with going to a room and board if MD agrees with dc plan to room and board. I explained to him I am working on his placement. He verbalized understanding. I called and spoke with Bill , Bill assist individuals with room and board, board and care, and snf placement. Bill met with patient at bedside. Bill completed his assessment. Per Bill, he will contact snfs and inquire if they can accept patient. He requested I fax inquiry to [facility] [facility] [address], fax number . I called and spoke with Nancy Stanley from [facility] / . Per Nancy, they do not have a contract with [facility], however, they are able to accept patient if [facility] can provide them with snf auth, room number 304B, accepting physician Dr. Hay, Manager Professional Development Shandra made aware.
[2019-02-01 16:00] VITALS: BP 163/88
--- NOTE | 2019-02-01 16:16 | NUR ---
Filter Plant Operator Note: I called and spoke with Mine Engineering Superintendent Berta from [facility] , I informed her that multiple snfs have been contacted and none of them are able to accept patient, with the exception [facility] [address], fax number . Per Berta, she will contact snfs and call me back.
--- NOTE | 2019-02-01 16:50 | NUR ---
Tray Filler Note: Per Head Track Coach Berta from [facility] , they will work on snf placement and will not send us a denial letter for patient's hospitalization at this time. She stated [facility] machine adjuster leader case trim will contact our charge nurse over weekend if an accepting snf is located. Berta provided me with auth for transportation, [employer] [id number].
--- NOTE | 2019-02-01 18:00 | NUR ---
PATIENT SLEEPING, ON ROOM AIR, NO DISTRESS NOTED
--- NOTE | 2019-02-01 19:10 | NUR ---
BEDSIDE REPORT GIVEN TO KATJA GABRIEL. PATIENT ENDORSED IN STABLE CONDITION
--- NOTE | 2019-02-01 19:11 | NUR ---
RECEIVED BEDSIDE REPORT FROM DAY SHIFT NURSE. PT IN STABLE CONDITION. NO S/S SOB OR RESPIRATORY DISTRESS NOTED. NO PAIN OR DISCOMFORT NOTED. IV SITE ON R HAND 22G, RUNNING NS @ 75MLS/HR, INTACT, PATENT, AND ASYMPTOMATIC. SAFETY MEASURES IN PLACE, PLAN OF CARE REVIEWED. BED IN LOW POSITION, CALL LIGHT WITHIN REACH. WILL CONTINUE TO MONITOR.
--- NOTE | 2019-02-01 20:25 | NUR ---
GIVEN VITAMIN C MD ORDERED. PT TOLERATED WELL. BED IN LOW POSITION. CALL LIGHT WITHIN REACH. WILL CONTINUE TO MONITOR.
--- NOTE | 2019-02-01 22:54 | NUR ---
PT SLEEPING IN BED COMFORTABLY. NO S/S OF ANY RESPIRATORY DISTRESS NOTED. BREATHING EVEN AND UNLABORED. WILL CONTINUE TO MONITOR.
[2019-02-02] VITALS: BP 165/85
[2019-02-02] MEDS: cloNIDine 0.1 MG TAB PO PRN ×3 (00:30→20:14)
[2019-02-02] MEDS: HYDRAGUARD CREAM TP SCH ×2 (01:00→14:00)
[2019-02-02] MEDS: Z-GUARD PASTE TP SCH ×2 (01:00→14:00)
--- NOTE | 2019-02-02 03:15 | NUR ---
PT HAD BOWEL MOVEMENT. CHANGED PT. NO S/S OF SOB NOTED. DENIED PAIN OR ANY DISCOMFORT. BED IN LOW POSITION. CALL LIGHT WITHIN REACH.
--- NOTE | 2019-02-02 05:05 | NUR ---
PT SLEEPING. NO ACUTE DISTRESS NOTED. BREATHING EVEN AND UNLABORED. BED IN LOW POSITION. CALL LIGHT WITHIN REACH.
[2019-02-02] MEDS: NACL 0.9% 1,000 ML IV SCH (07:20)
--- NOTE | 2019-02-02 07:25 | NUR ---
ENDORSED PT TO DAY SHIFT NURSE. PT IN STABLE CONDITION.
--- NOTE | 2019-02-02 07:26 | NUR ---
REPORT RECEIVED FROM TRUST MAIL CLERK NURSE AT BEDSIDE FOR CONTINUITY OF CARE. PATIENT ASLEEP. RESPIRATIONS EVEN AND UNLABORED ON ROOM AIR. PATIENT DENIES PAIN. IV SITE PATENT, INTACT, ASYMPTOMATIC, INFUSING IVF WELL. UPDATED BOARD. SAFETY PRECAUTIONS IN PLACE, CALL LIGHT WITHIN REACH, WILL CONTINUE TO MONITOR PATIENT.
--- NOTE | 2019-02-02 07:45 | NUR ---
DOCTORS DOING ROUNDS, WILL WAIT FOR THEIR UPDATED ORDERS.
[2019-02-02 08:00] VITALS: BP 150/75
[2019-02-02] MEDS: ASCORBIC ACID 500 MG TAB PO SCH ×2 (09:04→20:14)
--- NOTE | 2019-02-02 09:07 | NUR ---
ORDERED MEDICATION GIVEN. PATIENT TOLERATED IT. PATIENT RESTING IN BED, RESPIRATIONS EVEN AND UNLABORED. NO COMPLAINTS AT THIS TIME. PATIENT DENIES PAIN. SAFETY PRECAUTIONS IN PLACE, CALL LIGHT WITHIN REACH, WILL CONTINUE TO MONITOR PATIENT.
--- NOTE | 2019-02-02 09:17 | NUR ---
HAND SIZER FROM [facility] CALLED, SHE IS STILL LOOKING FOR SNF PLACEMENT, SHE WILL CALL US WHEN SNF PLACEMENT CONFIRMED. [phone]
[2019-02-02] MEDS ORDERED: TYL650S RC (09:54)
[2019-02-02] MEDS ORDERED: VITC500 PO (09:54)
--- NOTE | 2019-02-02 11:10 | NUR ---
PATIENT RESTING IN BED WITH EYES CLOSED, RESPIRATIONS EVEN AND UNLABORED ON ROOM AIR, NO COMPLAINTS AT THIS TIME. WILL CONTINUE TO MONITOR PATIENT.
--- NOTE | 2019-02-02 12:21 | NUR ---
PATIENT CURRENTLY SITTING UP IN BED EATING LUNCH, NO COMPLAINTS AT THIS TIME. PATIENT DENIES PAIN. SAFETY PRECAUTIONS IN PLACE, CALL LIGHT WITHIN REACH, WILL CONTINUE TO MONITOR PATIENT.
[2019-02-02] MEDS: THERAHONEY GEL 42.5 GM TP SCH (14:00)
--- NOTE | 2019-02-02 14:00 | NUR ---
DRESSING CHANGED FOR BILATERAL FEET. PATIENT TOLERATED IT WELL. NO COMPLAINTS AT THIS TIME. SAFETY PRECAUTIONS IN PLACE, CALL NO MANCINI, WILL CONTINUE TO MONITOR PATIENT. Addendum: 02/02/19 at 1921 by Lew Hui RN WOUNDS CLEANED PER ORDER.
[2019-02-02 16:00] VITALS: BP 147/75
--- NOTE | 2019-02-02 16:10 | NUR ---
PATIENT RESTING IN BED, VS WNL. RESPIRATIONS EVEN AND UNLABORED ON ROOM AIR. NO COMPLAINTS AT THIS TIME. SAFETY PRECAUTION IN PLACE, CALL LIGHT WITHIN REACH, WILL CONTINUE TO MONITOR PATIENT.
--- NOTE | 2019-02-02 17:55 | NUR ---
PATIENT CURRENTLY SITTING UP IN BED EATING DINNER. NO COMPLAINTS AT THIS TIME, PATIENT DENIES PAIN. SAFETY PRECAUTIONS IN PLACE, CALL LIGHT ALLEN MANCINI, WILL CONTINUE TO MONITOR PATIENT.
--- NOTE | 2019-02-02 19:19 | NUR ---
REPORT GIVEN AT BEDSIDE TO SHIP ENGINEER NURSE SUMMER FOR CONTINUITY OF CARE. PATIENT IN STABLE CONDITION.
--- NOTE | 2019-02-02 19:30 | NUR ---
RECEIVED BEDSIDE REPORT FROM RN NELLY, PATIENT IN BED, ON FALL PRECAUTIONS, NO SIGNS OF ACUTE DISTRESS, IV IN LEFT HAND 22 SL. BILATERAL PRESSURE BOOTS ON, SCABS ON BILATERAL TOES, WOUNDS ON ANKLES, AND INCONTINENT DERMATITIS ON GROIN SKIN FOLDS. EXPLAINED PLAN OF CARE.
--- NOTE | 2019-02-02 20:17 | NUR ---
GAVE CLONIDINE DUE TO BP 180/89 HR 60
--- NOTE | 2019-02-02 21:35 | NUR ---
PATIENT RESTING IN BED, V/S STABLE.
[2019-02-02 23:32] VITALS: BP 150/70
--- NOTE | 2019-02-02 23:57 | NUR ---
RESTING IN BED NO SIGNS OF ACUTE DISTRESS
[2019-02-03] MEDS: Z-GUARD PASTE TP SCH ×3 (00:31→22:45)
[2019-02-03] MEDS: HYDRAGUARD CREAM TP SCH ×3 (00:31→22:44)
--- NOTE | 2019-02-03 01:50 | NUR ---
APPLIED HYDRAGUARD AND Z GUARD
--- NOTE | 2019-02-03 04:20 | NUR ---
PATIENT SLEEPING IN BED WILL CONTINUE TO MONITOR
--- NOTE | 2019-02-03 06:04 | NUR ---
PATIENT SLEEPING, BED ALARM ON
--- NOTE | 2019-02-03 07:12 | NUR ---
ENDORSED PATIENT TO DAY SHIFT NURSE, PATIENT STABLE.
[2019-02-03 08:00] VITALS: BP 151/77
[2019-02-03] MEDS: ASCORBIC ACID 500 MG TAB PO SCH ×2 (08:05→20:18)
--- NOTE | 2019-02-03 08:06 | NUR ---
ORDERED MEDICATION GIVEN. PATIENT TOLERATED IT WELL. PATIENT FINISHING UP WITH BREAKFAST. NO COMPLAINTS AT THIS TIME. WILL CONTINUE TO MONITOR PATIENT.
--- NOTE | 2019-02-03 08:23 | NUR ---
REPORT RECEIVED FROM BRADDER NURSE AT BEDSIDE FOR CONTINUITY OF CARE. PATIENT AWAKE. RESPIRATIONS EVEN AND UNLABORED ON ROOM AIR. PATIENT DENIES PAIN. NO SIGNS OF ACUTE DISTRESS IV SITE PATENT, INTACT, ASYMPTOMATIC, SALINE LOCKED. BILATERAL PRESSURE BOOTS ON, SCABS ON BILATERAL TOES, WOUNDS ON ANKLES, AND INCONTINENT DERMATITIS ON GROIN SKIN FOLDS. UPDATED PLAN OF CARE WITH PATIENT, HE VERBALIZED UNDERSTANDING. UPDATED BOARD. SAFETY PRECAUTIONS IN PLACE, CALL LIGHT WITHIN REACH, WILL CONTINUE TO MONITOR PATIENT. Addendum: 02/03/19 at 0823 by Lew Hui RN WRONG TIME. CORRECT TIME 0713.
--- NOTE | 2019-02-03 10:05 | NUR ---
PATIENT RESTING IN BED, NO SIGN OF ACUTE DISTRESS NOTED. PATIENT DENIES PAIN, NO COMPLAINTS AT THIS TIME. SAFETY PRECAUTIONS IN PLACE, CALL LIGHT WITHIN REACH, WILL CONTINUE TO MONITOR PATIENT.
--- NOTE | 2019-02-03 12:38 | NUR ---
PATIENT SITTING UP IN BED, FINISHED HIS LUNCH. P NO COMPLAINTS AT THIS TIME. SAFETY PRECAUTIONS IN PLACE, CALL LIGHT WITHIN REACH, WILL CONTINUE TO MONITOR PATIENT.
[2019-02-03] MEDS: THERAHONEY GEL 42.5 GM TP SCH (14:00)
--- NOTE | 2019-02-03 14:00 | NUR ---
DRESSINGS RINSED AND CHANGED PER ORDERS. ZGUARD AND HYDRAGUARD APPLIED. PATIENT TOLERATED IT. PATIENT NOW RESTING IN BED, NO COMPLAINTS AT THIS TIME. WILL CONTINUE TO MONITOR PATIENT.
[2019-02-03 16:00] VITALS: BP 148/74
--- NOTE | 2019-02-03 17:19 | NUR ---
PATIENT SITTING UP IN BED EATING DINNER. NO COMPLAINTS AT THIS TIME. RESPIRATIONS EVEN AND UNLABORED ON ROOM AIR. SAFETY PRECAUTIONS IN PLACE, CALL LIGHT WITHIN REACH, WILL CONTINUE TO MONITOR PATIENT.
--- NOTE | 2019-02-03 19:05 | NUR ---
REPORT GIVEN TO BUSINESS PROCESS LEAD RN SUMMER AT BEDSIDE FOR CONTINUITY OF CARE. PATIENT IN STABLE CONDITION.
--- NOTE | 2019-02-03 19:20 | NUR ---
RECEIVED BEDSIDE REPORT FROM RN NELLY, PATIENT IN BED, ON FALL PRECAUTIONS, BED ALARM ON, NO SIGNS OF ACUTE DISTRESS, IV IN LEFT HAND 22 SL. BILATERAL PRESSURE BOOTS ON, SCABS ON BILATERAL TOES, WOUNDS ON ANKLES, INCONTINENT DERMATITIS ON GROIN SKIN FOLDS. EXPLAINED PLAN OF CARE. WILL CONTINUE TO MONITOR
--- NOTE | 2019-02-03 20:26 | NUR ---
DUE MEDICATIONS GIVEN
--- NOTE | 2019-02-03 22:40 | NUR ---
PATIENT SLEEPING IN BED WILL CONTINUE TO MONITOR
[2019-02-03 23:46] VITALS: BP 151/81
--- NOTE | 2019-02-04 01:02 | NUR ---
PATIENT RESTING IN BED, BED ALARM ON.
--- NOTE | 2019-02-04 02:30 | NUR ---
PATIENT SLEEPING IN BED WILL CONTINUE TO MONITOR
--- NOTE | 2019-02-04 04:36 | NUR ---
RESTING IN BED, NO COMPLAINS OF PAIN AT THIS TIME. BED ALARM ON.
--- NOTE | 2019-02-04 07:22 | NUR ---
ENDORSED PATIENT TO DAY SHIFT NURSE FOR CONTINUITY OF CARE. PATIENT STABLE.
--- NOTE | 2019-02-04 07:23 | NUR ---
RECEIVED BEDSIDE REPORT FROM KATJA AVILA. PATIENT ON MED SURGE AND STANDARD PRECAUTIONS IN PLACE. PATIENT AAOX4 AND COMMUNICATES APPROPRIATELY. L LEG WOUND, INCONTINENT DERMATITIS ON BUTTOCKS, SACRAL WOUND, OPEN WOUNDS ON B/L TOES, DRESSINGS CLEAN DRY AND INTACT. PATIENT BEDREST AND CONTINENT. IV ON L H 22 G SALINE LOCK, IV ASYMPTOMATIC PATENT AND INTACT. BED IN LOW POSITON, CALL LIGHT WITHIN REACH, SIDE RAILS X2 UP
[2019-02-04 08:00] VITALS: BP 161/88
[2019-02-04] MEDS: cloNIDine 0.1 MG TAB PO PRN (09:07)
[2019-02-04] MEDS: ASCORBIC ACID 500 MG TAB PO SCH ×2 (09:08→21:12)
--- NOTE | 2019-02-04 09:09 | NUR ---
ADMINISTERED SCHEDULED MEDS. PATIENT TOLERATED WELL
--- NOTE | 2019-02-04 10:18 | NUR ---
Safety Pin Assembling Machine Operator Note: Per Food Preparation Worker Berta from [facility] , [facility] business case analyst/s will continue to work on snf placement and will not send us a denial letter for patient's hospitalization at this time. Addendum: 02/04/19 at 1033 by Maira Maradiaga SS Per from Nancy [facility] [place] [address], fax number , they can still accept patient today if [facility] authorizes snf placement.
--- NOTE | 2019-02-04 11:24 | NUR ---
PATIENT HAD BM. ON ROOM AIR, NO DISTRESS NOTED
[2019-02-04] MEDS: THERAHONEY GEL 42.5 GM TP SCH (13:00)
[2019-02-04] MEDS: Z-GUARD PASTE TP SCH (13:00)
[2019-02-04] MEDS: HYDRAGUARD CREAM TP SCH (13:00)
--- NOTE | 2019-02-04 14:31 | NUR ---
PATIENT SLEEPING, ON ROOM AIR, NO DISTRESS NOTED
[2019-02-04 16:00] VITALS: BP 158/92
--- NOTE | 2019-02-04 16:30 | NUR ---
PATIENT EATING LUNCH, ON ROOM AIR, NO DISTRESS NOTED
--- NOTE | 2019-02-04 19:10 | NUR ---
BEDSIDE REPORT GIVEN TO KATJA CALVILLO. PATIENT ENDORSED IN STABLE CONDITION
--- NOTE | 2019-02-04 19:11 | NUR ---
RECEIVED BEDSIDE REPORT FROM CEE HIGHTOWER. A/O X4. COOPERATIVE. ABLE TO MAKE NEEDS KNOWN. WEAKNESS. L HAND 22G SL. CLEAN DRY INTACT. FALL RISK PREC IN PLACE. URINAL AT BEDSIDE. DRESSING IN BOTH FEET ARE CLEAN DRY. NO SIGNS OF RESP DISTRESS OR DISCOMFORT. BED IN LOW POSITION. CALL LIGHT WITHIN REACH. WILL CONTINUE TO MONITOR.
--- NOTE | 2019-02-04 21:30 | NUR ---
VOIDED 500CC IN URINAL. PT REPOSITIONED. NO DISTRESS NOTED. WILL CONTINUE TO MONITOR.
--- NOTE | 2019-02-04 23:15 | NUR ---
LAYING IN BED. NO COMPLAINTS AT THIS TIME. DENIES PAIN. NO SIGN OF RESP DISTRESS OR DISCOMFORT. BED IN LOW POSITION. CALL LIGHT WITHIN REACH. WILL CONTINUE TO MONITOR.
[2019-02-05] VITALS: BP 176/99
[2019-02-05] MEDS: cloNIDine 0.1 MG TAB PO PRN (00:47)
--- NOTE | 2019-02-05 00:47 | NUR ---
BP 176/99. PULSE 62. CLONDIPINE PRN GIVEN. EDUCATED ON SIDE EFFECTS. VERBALIZED UNDERSTANDING. TOLERATED WELL. WILL CONTINUE TO MONITOR.
[2019-02-05] MEDS: HYDRAGUARD CREAM TP SCH ×2 (01:28→13:40)
[2019-02-05] MEDS: Z-GUARD PASTE TP SCH ×2 (01:28→13:40)
--- NOTE | 2019-02-05 02:30 | NUR ---
PT VOIDED IN URINAL. NO COMPLAINTS AT THIS TIME. DRESSINGS ON R AND L ANKLES CHANGED. CLEAN DRY INTACT. PT TOLERATED WELL. NO SIGNS OF DISTRESS WILL CONTINUE TO MONITOR.
--- NOTE | 2019-02-05 04:15 | NUR ---
PT SLEEPING IN BED. EASILY AROUSABLE. NO SIGNS OF DISTRESS NOTED. WILL CONTINUE TO MONITOR.
--- NOTE | 2019-02-05 05:55 | NUR ---
PT SLEEPING IN BED. NO SIGNS OF DISTRESS NOTED. NO PAIN AT THIS TIME. EASILY AROUSABLE. WILL CONTINUE TO MONITOR. PT IN STABLE CONDITION. WILL ENDORSE TO AM SHIFT FOR CONTINUITY OF CARE.
--- NOTE | 2019-02-05 07:10 | NUR ---
RECEIVED PT FROM LAB COURIER NURSE, PT IS ASLEEP AND RESPIRATION IS EVEN, SIDE RAILS ARE UP AND CALL LIGHT WITHIN REACH, FALL PRECAUTION ENFORCED, BED IN LOW POSITION, PT HAS AN IV LINE ON THE LEFT HAND G.22 ON SLAINEM LOCK, PT HAS BILATERAL OPEN WOUNDS AND FOOT BOOTS WERE IN PLACE. NO SIGN OF DISTRESS NOTED AND WILL MONITOR PT.
[2019-02-05 08:00] VITALS: BP 147/89
--- NOTE | 2019-02-05 08:15 | NUR ---
PT IS AWAKE AND EATING HIS BREAKFAST, VITAL SIGNS CHECKED AND BP IS 147/89, PULSE IS 64, O2 SATURATION IS 99%, TEMPERATURE IS 98.7, RESPIRATION IS 16/MIN, NO SIGN OF DISTRESS NOTED AND WILL MONITOR PT.
[2019-02-05] MEDS: ASCORBIC ACID 500 MG TAB PO SCH ×2 (09:58→21:30)
--- NOTE | 2019-02-05 09:58 | NUR ---
PT WAS GIVEN VITAMIN -C TABLET NOW AND TOLERATED IT. WILL MONITOR PT.
--- NOTE | 2019-02-05 10:10 | NUR ---
PHYSICAL THERAPIST ON THE BEDSIDE ASSESSING THE PT, PT AMBULATED FROM THE BED TO THE DOOR ASSISTED BY PT.
--- NOTE | 2019-02-05 10:13 | NUR ---
Supervisor Train Operations Note: Per Disaster Or Damage Control Specialist Berta from [facility] , [facility] are still working on finding an accepting snf, she is unsure when a snf will be located, Credit Support Counselor Barbara made aware.
[2019-02-05] MEDS: THERAHONEY GEL 42.5 GM TP SCH (13:40)
--- NOTE | 2019-02-05 14:39 | NUR ---
Pile Fabric Knitter Note: Per Director of Case Management and Pile Fabric Knitter Dept Belen, she will call Public Safety Officer Berta from [facility] to discuss patient's discharge plan.
--- NOTE | 2019-02-05 14:50 | NUR ---
WOUND CARE DONE PER WOUND CARE INSTRUCTION, CLEANED WITH NS, PAT DRY, ADAPTIC APPLIED, GAUZE, KERLIX, PATRICIA WRAP APPLIED, PT DEVANTE WELL, HEEL PROTECTORS PLACED BACK ON.
--- NOTE | 2019-02-05 15:19 | NUR ---
NELLIE FROM [facility] CAME TO EVALUATE PT. NELLIE STATED PT HAS NOT DECIDED YET [facility] TO GIVE UP HIS STORAGE PLACE OR NOT. Addendum: 02/05/19 at 1527 by Kaitlyn Vazquez RN NELLIE STATED THEY WILL FOLLOW UP WITH CM/STATISTICAL METHODS PROFESSOR TOMORROW.
[2019-02-05 16:00] VITALS: BP 153/83
--- NOTE | 2019-02-05 16:03 | NUR ---
02/05/19 RD FOLLOW UP COMPLETED PLEASE REFER TO NUTRITION ASSESSMENT UNDER CARE ACTIVITY FOR ESTIMATED NUTRITIONAL NEEDS. 1. CONTINUE REGULAR DIET TOLERATED 2. RECOMMEND MILDRED BID 3. HEALTH SHAKES QD WILL BE PROVIDED BY [facility] 4. RD TO FOLLOW-UP 3-5 DAYS, MODERATE RISK SUSAN GUDINO RD
--- NOTE | 2019-02-05 19:35 | NUR ---
ENDORSED PT TO INVESTIGATOR NURSENERI FOR CONTINUITY OF CARE. PT IS STABLE AT THIS TIME.
--- NOTE | 2019-02-05 19:40 | NUR ---
Received endorsement from AM shift RN; patient is A/Ox3, able to make needs known, bedrest. Patient is laying in his bed; introduced self, updated board. No SOB or distress noted, on room air. IV site on left hand, 22 gauge, saline locked. Patient noted with dressing on bilateral feet, dry and intact. Bed in the lowest position, call light within reach. Initial assessment done. Will continue to monitor.
--- NOTE | 2019-02-05 21:15 | NUR ---
Due meds given, tolerated well.
--- NOTE | 2019-02-05 23:25 | NUR ---
Vitals taken, no distress noted.
[2019-02-06] VITALS: BP 181/95
--- NOTE | 2019-02-06 01:10 | NUR ---
Rounds done; patient asleep, visible chest rise and fall noted.
[2019-02-06] MEDS: cloNIDine 0.1 MG TAB PO PRN (01:19)
[2019-02-06] MEDS: Z-GUARD PASTE TP SCH ×2 (01:22→12:44)
[2019-02-06] MEDS: HYDRAGUARD CREAM TP SCH ×2 (01:22→12:44)
--- NOTE | 2019-02-06 03:25 | NUR ---
Frequent checks made; not distress noted. Patient asleep, eyes closed, visible chest rise and fall noted.
--- NOTE | 2019-02-06 05:31 | NUR ---
Checks made, no SOB or distress noted.
--- NOTE | 2019-02-06 07:15 | NUR ---
Endorsed patient to AM shift RN for continuity of care; patient in stable condition.
[2019-02-06 08:00] VITALS: BP 169/90
--- NOTE | 2019-02-06 08:00 | NUR ---
PATIENT WAS AWAKE, ALERT, EATING BREAKFAST COMFORTABLY. RESPIRATION EVEN, UNLABOR ON ROOM AIR. SKIN DRY AND WARM. IV PATENT AND INTACT. DENIED PAIN AT THIS TIME. PLAN OF CARE WAS DISCUSSED WITH PATIENT. BED AT LOW POSITION, SIDE RAILS UP. CALL LIGHT WITHIN REACH.
[2019-02-06 09:00] VITALS: BP 156/65
--- NOTE | 2019-02-06 09:05 | NUR ---
Customer Operations Specialist Note: I called and spoke with Stephanie from [facility] / . I asked her if she can please reconsider accepting patient. I explained to her he will need short term snf placement for wound care and physical therapy. I told her Bill will place patient in a room and board upon discharge from snf. I provided her with Bill's phone number. Stephanie requested I fax inquiry. I faxed inquiry. I received a call from Lissy from [facility], she stated patient has been accepted clinically and she spoke with Manager Practice Berta from [facility] regarding snf authorization already. Lissy stated patient may go to room 333B today, accepting MD is . I informed Manager Practice Berta patient has been accepted at [facility], she confirmed with me she spoke with Lissy at [facility] and has approved [facility]. Berta provided me with transportation [employer] [id number].
--- NOTE | 2019-02-06 09:30 | NUR ---
PATIENT WAS AWAKE, WATCHING TV COMFORTABLY. RESPIRATION EVEN, UNLABOR ON ROOM AIR. NO DISTRESS NOTED AT THIS TIME.
[2019-02-06] MEDS: ASCORBIC ACID 500 MG TAB PO SCH (09:35)
--- NOTE | 2019-02-06 10:53 | NUR ---
WOUND CARE RE-EVALUATION: PT. WITH BLE S/P DEBRIDEMENT BY PODIATRY AND CONTINUE TO FOLLOW OIL RIGGER ORDERS. PHOTO TAKEN TO BLE AND R/L BUTTOCKS -CONTACT DERMATITIS TO R/L GROINS MULTIPLE RASHES AND DRY SCABS RESPONDING TO CURRENT TREATMENT -LEFT HIP 1X1CM BROWN SCAB PEELED OFF WITH SUPERFICIAL LAYER SKIN OFF AND RESPONDING TO CURRENT TX -MOISTURE ASSOCIATE DERMATITIS (MAD) TO: TO R/L POSTERIOR, MEDIAL THIGHS EXTENDED TO PERINEUM, RIGHT AND LEFT BUTTOCKS AND SCROTAL WITH MULTIPLE SKIN EROSIONS IMPROVEMENT NOTICE, RESPONDING TO CURRENT TX -S/P DEBRIDEMENT VASCULAR ULCER UN-STAGEABLE LEFT MEDIAL MALLEOLUS EXTENDED TO ACHILLES AND LEFT DORSAL FEET 12X9 CM, DEPTH SUPERFICIAL, WOUND BED 100% GRANULATING TISSUE, MOIST, NO ODOR, PHONG WOUND SKIN INTACT. -S/P DEBRIDEMENT VASCULAR ULCER UN-STAGEABLE RIGHT LATERAL MALLEOLUS EXTENDED TO ACHILLES AND RIGHT DORSAL FEET 16X10 CM, DEPTH IS SUPERFICIAL WOUND BED 100% GRANULATING TISSUE, MOIST, NO ODOR, PHONG WOUND SKIN INTACT -S/P DEBRIDEMENT VASCULAR ULCER RIGHT MEDIAL MALLEOLUS 5X6X 0.1CM, WOUND BED 100% GRANULATING PINK TISSUE, MOIST,NO ODOR, PHONG WOUND SKIN ERYTHEMA - ULCER UN-STAGEABLE X 10 TOES WITH [place] DRY SCABS TO EACH TOE AND LARGEST MEASURE ON RIGHT 2ND DIGIT 1X1CM WOUND BED IS 100 % GRANULATING TISSUE, MOIST , NO ODOR, PHONG WOUND SKIN INTACT - SACRALCOCCYX PRESSURE ULCER INJURY STAGE 1, RESOLVED -RIGHT AND LEFT HEELS PRESSURE ULCER INJURY NON-BLANCHABLE SKIN INTACT WITH MUSHY SKIN, RESOLVED RECOMMENDATIONS: -APPLY HYDRAGUARD TO R/L GROINS DRY SCABS BID AND PRN IF SOILING -APPLY Z-GUARD TO R/L POSTERIOR, MEDIAL THIGHS EXTENDED TO PERINEUM, RIGHT AND LEFT BUTTOCKS AND SCROTAL BID AND PRN IF SOILING - CLEANSE LEFT AND RIGHT LATERAL MALLEOLUS EXTENDED TO ACHILLES AND DORSAL FEET WITH WOUND CLEANSING SOLUTION AND APPLY XEROFORM DRESSING COVER WITH DRY DRESSING AND WRAP WITH KERLIX ROLLER QD AND PRN IF SOILING - CLEANSE LEFT AND RIGHT DORSAL FEET AND 10 TOES WITH WOUND CLEANSING SOLUTION AND APPLY XEROFORM DRESSING COVER WITH DRY DRESSING AND WRAP WITH KERLIX ROLLER QD AND PRN IF SOILING -APPLY FORM DRESSING TO SACROCOCCYX Q7 DAYS AND PRN IF SOILING PREVENTION -APPLY HEEL PROTECTORS TO BOTH HEELS AT ALL TIMES -OFFLOAD BILATERAL HEELS BY PLACING PILLOWS UNDER CALVES UNLESS OTHERWISE CONTRAINDICATED -PRESSURE REDISTRIBUTION SURFACE THERAPY -TURN AND REPOSITION Q2H, OFFLOAD SACRALCOCCYX AND BUTTOCKS BY TURNING RIGHT AND LEFT -CONTINUE TO FOLLOW RD RECOMMENDATIONS
--- NOTE | 2019-02-06 12:00 | NUR ---
CALLED [facility] [phone] SPOKE TO AMRIK, TRANSPORT AUTH [id number], PATIENT IS GOING TO [facility] [address] [address]. PATIENT IS GOING TO ROOM 333B , ADMITTING MD IS DR LYNCH. LEGAL ADMINISTRATIVE SECRETARY TIME IS 3PM, BRIGIDO HIGHTOWER MADE AWARE.
--- NOTE | 2019-02-06 12:00 | NUR ---
PATIENT WAS SLEEPING COMFORTABLY. RESPIRATION EVEN, UNLABOR ON ROOM AIR. NO DISTRESS NOTED AT THIS TIME
--- NOTE | 2019-02-06 12:54 | NUR ---
JANET FROM [facility] CALLED AND GAVE AUTH FOR [facility], AUTH # [id number]. JANET SAID SHE WILL CALL [facility] TO NOTIFY THEM WELL.
--- NOTE | 2019-02-06 13:00 | NUR ---
CALLED AND GAVE REPORT TO INDY HIGHTOWER AT [facility]
--- NOTE | 2019-02-06 14:00 | NUR ---
PATIENT WAS MADE AWARE OF BEING TRANSFERRED TO [facility]. PATIENT BECAME AGITATED, STATED THAT HE DID NOT HAVE TIME TO GET HIS THINGS FROM THE POLICE, THERE IS NO UMBRELLA IF IT RAINS, AND HE DOES NOT HAVE CLOTHES TO CHANGE INTO. PATIENT WAS EXPLAINED THAT THERE IS TRANSPORTATION BEING ARRANGED FOR HIM, AND SECURITY WILL PROVIDE CLOTHING.
--- NOTE | 2019-02-06 14:15 | NUR ---
IV WAS REMOVED, CATHETER INTACT, NO ACTIVE BLEEDING SEEN
--- NOTE | 2019-02-06 15:00 | NUR ---
PATIENT REFUSED VACCINATIONS. PATIENT IS UNABLE TO SIGN DISCHARGE PAPERWORK DUE TO GRAVELY DISABLE.
[2019-02-06 16:00] VITALS: BP 140/68
--- NOTE | 2019-02-06 17:15 | NUR ---
REPORT WAS GIVEN TO EMT AT BEDSIDE. PATIENT WAS ESCORTED OUT IN WHEELCHAIR BY STAFF. PATIENT IS STABLE AT THIS TIME
== END 2019-02-06 17:15 | DRG 469 ==
LOC: MED 19:23 → MTU 22:19
PROVIDERS: ADMIT Internal Medicine Pulmonary Disease; ATTEND Internal Medicine Pulmonary Disease
DX: N17.0 Acute kidney failure with tubular necrosis (principal); L03.115 Cellulitis of right lower limb; L97.919 Non-pressure chronic ulcer of unspecified part of right lower leg with unspecified severity; L03.116 Cellulitis of left lower limb; E44.1 Mild protein-calorie malnutrition; E86.0 Dehydration; I87.2 Venous insufficiency (chronic) (peripheral); F29 Unspecified psychosis not due to a substance or known physiological condition; L97.929 Non-pressure chronic ulcer of unspecified part of left lower leg with unspecified severity; Z59.0 Homelessness; Z68.1 Body mass index [BMI] 19.9 or less, adult
CPT/HCPCS: 36415; 71045; 80048; 80053; 81001; 82140; 82550; 82948; 83605; 83880; 84484; 85025; 87040; 87081; 87086; 93005; 96365; 97110; 97116; 97161-GP; 97530; 99285; G0482; J0696; J1200; J2405; J3490; J7030; J7060; Q0092

== ENCOUNTER 2019-04-09 12:38 | Inpatient (IN) | payer OTHER, MEDICARE ==
[~2019-04-09] VITALS: Ht 167.6 cm; Wt 63.5 kg
[2019-04-09 12:38] VITALS: BP 142/82
[~2019-04-09 12:38] MED LIST: TYL650S RC; VITC500 PO
--- NOTE | 2019-04-09 12:38 | NUR ---
Patient BIBA ACLS, transferred to bed 10. RN evaluating patient at bedside.
--- NOTE | 2019-04-09 12:45 | NUR ---
Dr. Ricks evaluating patient at bedside.
--- NOTE | 2019-04-09 12:48 | NUR ---
gricel per report pt crawling on the streets c/o bilateral leg wounds and severe pain stating he was unable to walk. Maggots were observed to bilateral lower extremities; open sores present. Affected area cleaned by RN. Pt placed in hospital gown; connected to monitor. VSS.
[2019-04-09] MEDS ORDERED: NACL 0.9% 1,000 ML IV SCH (12:50)
[2019-04-09 13:24] LABS: BASOPHILS % (AUTO) 0.3 % (0.0-2.0); EOSINOPHILS % (AUTO) 0.2 % (0.0-4.0); HEMATOCRIT 36.6 % (36-52); HEMOGLOBIN 12.1 g/dL (12.0-18.0); LYMPHOCYTES # (AUTO) 1.1 K/uL (2.0-11.5); LYMPHOCYTES % (AUTO) 10.8 % (20.5-51.1); MEAN CORPUSCULAR HEMOGLOBIN 28 pg (27-31); MEAN CORPUSCULAR HGB CONC 33 g/dL (33-37); MEAN CORPUSCULAR VOLUME 84.6 fL (80-94); MONOCYTES # (AUTO) 0.9 K/uL (0.8-1.0); MONOCYTES % (AUTO) 8.4 % (1.7-9.3); NEUTROPHILS # (AUTO) 8.4 K/uL (1.8-7.7); NEUTROPHILS % (AUTO) 80.3 % (42.2-75.2); PLATELET COUNT (AUTO) 303 K/uL (140-450); RED BLOOD CELL COUNT(AUTO) 4.33 MIL/uL (4.20-6.10); RED CELL DISTRIBUTION WIDTH 15.5 % (11.6-13.7); WHITE BLOOD COUNT (AUTO) 10.5 K/uL (4.8-10.8)
--- NOTE | 2019-04-09 13:28 | NUR ---
refinery technician at bedside.
[2019-04-09 13:47] LABS: PROTHROMBIN TIME 10.1 secs (10.8-13.4)
[2019-04-09 13:49] LABS: ANION GAP 11.6 (8-16); CARBON DIOXIDE 28.3 mmol/L (21-32); CHLORIDE 100 mmol/L (98-107); CREATININE 1.6 mg/dL (0.7-1.3); GLUCOSE 117 mg/dL (74-106); POTASSIUM 3.9 mmol/L (3.5-5.1); SODIUM SERUM 136 mmol/L (136-145); UREA NITROGEN, BLOOD 21 mg/dL (7-18)
[2019-04-09 13:56] LABS: ASPARTATE AMINOTRANSFERASE 20 U/L (15-37); TOTAL BILIRUBIN 0.5 mg/dL (0.0-1.0)
[2019-04-09] MEDS ORDERED: cefTRIAXone 1,000 MG VIAL ONE (14:40)
--- NOTE | 2019-04-09 15:38 | NUR ---
Patient admitted to care of Dr. Ankit Martinez . Admited to Med Surg; room 106A. Belongings list completed. Report to KATJA Crowley. Transfer of care at this time; pt in stable condition.
[2019-04-09] MEDS ORDERED: LORazepam 2 MG/ML VIAL IVP PRN (15:55)
[2019-04-09] MEDS ORDERED: ACETAMINOPHEN 325 MG TAB PO PRN (15:55)
[2019-04-09] MEDS ORDERED: cloNIDine 0.1 MG TAB PO PRN (15:55)
[2019-04-09] MEDS ORDERED: BISACODYL 10 MG SUPP RC PRN (15:55)
[2019-04-09] MEDS ORDERED: diphenhydrAMINE 50 MG/ML VIAL IVP PRN (15:55)
[2019-04-09] MEDS ORDERED: HYDROcodone/APAP 5/325 MG 1 TAB TAB PO PRN (15:55)
[2019-04-09] MEDS ORDERED: POTASSIUM CHLORIDE 10 MEQ TABER PO PRN (15:55)
[2019-04-09] MEDS ORDERED: MAGNESIUM OXIDE 400 MG TAB PO PRN (15:55)
[2019-04-09] MEDS ORDERED: DOCUSATE SODIUM 250 MG GELCAP PO PRN (15:55)
[2019-04-09] MEDS ORDERED: MAG SULF 2000 MG/WATER PREMIX 50 ML IV PRN (15:55)
[2019-04-09] MEDS ORDERED: POTASSIUM CHLORIDE 40 MEQ, LIDOCAINE 1% 25 MG in NACL 0.9% 250 ML IV PRN (15:55)
[2019-04-09] MEDS ORDERED: ONDANSETRON 4 MG/2 ML VIAL IVP PRN (15:55)
[2019-04-09] MEDS ORDERED: ZOLPIDEM 5 MG TAB PO PRN (15:55)
[2019-04-09 16:00] VITALS: BP 129/81
--- NOTE | 2019-04-09 16:10 | NUR ---
RECEIVED SBAR REPORT FROM KATJA PLEITEZ AT PT BEDSIDE. PATIENT RESTING IN BED. ALERT AND ORIENTED, FOLLOWS COMMANDS. RIGHT LEG CELLULITIS. ON BEDREST. DENIES PAST MEDICAL HISTORY. DENIES PAIN. NO ACUTE RESPIRATORY DISTRESS NOTED, ON ROOM AIR. PATIENT AMBULATORY WITH MAX ASSIST. CALL LIGHT WITHIN REACH.
[2019-04-09] MEDS ORDERED: CLINICAL MONITORING MC PRN (17:20)
--- NOTE | 2019-04-09 17:55 | NUR ---
PATIENT RESTING IN BED, DENIES DISCOMFORT. NO ACUTE DISTRESS NOTED.
--- NOTE | 2019-04-09 19:20 | NUR ---
SBAR REPORT GIVEN TO KATJA JACKSON AT PT BEDSIDE. PATIENT EATING DINNER. NO ACUTE DISTRESS NOTED. DENIES PAIN/DISCOMFORT.
--- NOTE | 2019-04-09 19:20 | NUR ---
RECD. RESTING IN BED, AWAKE, A/OX3. RESPIRATION EVEN AND UNLABORED. PATIENT IS UNTIDY, HOMELESS. SALINE LOCK AT THE LEFT FOREARM G18, PATENT AND INTACT. EATING HIS DINNER. WITH RIGHT LEG CELLULITIS, NO DRAINAGE NOTED. PLAN OF CARE DISCUSSED. SEEMS NOT TO CARE. DENIES PAIN 0/10.
--- NOTE | 2019-04-09 19:21 | NUR ---
Patient's Plan of Care was discussed and reviewed with SYNOPTIC METEOROLOGIST: RENETTA STARKEY
[2019-04-09 20:00] VITALS: BP 154/92
--- NOTE | 2019-04-09 21:00 | NUR ---
SLEEPING COMFORTABLY IN BED.
[2019-04-09] MEDS ORDERED: ceFAZolin 1,000 MG VIAL ONE (22:37)
--- NOTE | 2019-04-10 | NUR ---
STILL SLEEPING COMFORTABLY IN BED, USES THE URINAL TO VOID.
--- NOTE | 2019-04-10 04:00 | NUR ---
SLEEPING IN BED, NO COMPLAINT OF PAIN 0/10.
[2019-04-10] MEDS ORDERED: ceFAZolin 1,000 MG VIAL ONE (05:48)
[2019-04-10 06:04] LABS: APPEARANCE,URINE CLEAR (CLEAR); BILIRUBIN,URINE NEGATIVE (NEGATIVE); BLOOD, URINE NEGATIVE (NEGATIVE); COLOR,URINE YELLOW (YELLOW); LEUKOCYTE ESTERASE ,URINE NEGATIVE (NEGATIVE); NITRITE, URINE NEGATIVE (NEGATIVE); UGLUCOSE NEGATIVE (NEGATIVE)
--- NOTE | 2019-04-10 06:52 | NUR ---
ABLE TO SLEEP WELL. CONDITION REMAIN STABLE. NO COMPLAINT OF PAIN DURING SHIFT. TOLERATED ANTIBIOTICS GIVEN DURING SHIFT. WILL ENDORSED TO AM NURSE FOR CONTINUITY OF CARE.
--- NOTE | 2019-04-10 07:19 | NUR ---
RECEIVED REPORT FROM SENIOR REACTOR OPERATOR KATJA JACKSON AT PT BEDSIDE. PATIENT RESTING IN BED. PT IS AAOX4 AND FOLLOWS COMMANDS. PT HAS RIGHT LEG CELLULITIS. PT ON BEDREST DUE TO BEING UNSTABLE ON FEET FROM DX ON. DENIES PAST MEDICAL HX. DENIES PAIN. NO ACUTE RESPIRATORY DISTRESS NOTED, ON ROOM AIR. PATIENT AMBULATORY WITH MAX ASSIST. DISCUSSED POC WITH PT AND PT VERBALIZED UNDERSTANDING. WILL ROUND FREQUENTLY ON PT. BED IN LOWEST POSITION, CALL LIGHT WITHIN REACH.
[2019-04-10 07:33] LABS: BASOPHILS % (AUTO) 0.5 % (0.0-2.0); EOSINOPHILS # (AUTO) 0.1 K/uL (0-0.4); HEMATOCRIT 33.6 % (36-52); LYMPHOCYTES # (AUTO) 1.9 K/uL (2.0-11.5); LYMPHOCYTES % (AUTO) 22.8 % (20.5-51.1); MEAN CORPUSCULAR HEMOGLOBIN 28 pg (27-31); MEAN CORPUSCULAR HGB CONC 33 g/dL (33-37); MEAN CORPUSCULAR VOLUME 85.3 fL (80-94); MONOCYTES # (AUTO) 0.8 K/uL (0.8-1.0); MONOCYTES % (AUTO) 9.3 % (1.7-9.3); NEUTROPHILS # (AUTO) 5.7 K/uL (1.8-7.7); NEUTROPHILS % (AUTO) 66.4 % (42.2-75.2); PLATELET COUNT (AUTO) 260 K/uL (140-450); RED BLOOD CELL COUNT(AUTO) 3.94 MIL/uL (4.20-6.10); RED CELL DISTRIBUTION WIDTH 15.6 % (11.6-13.7); WHITE BLOOD COUNT (AUTO) 8.5 K/uL (4.8-10.8)
[2019-04-10 07:36] LABS: ALBUMIN 2.4 g/dL (3.4-5.0); ASPARTATE AMINOTRANSFERASE 21 U/L (15-37); CARBON DIOXIDE 25.8 mmol/L (21-32); CHLORIDE 106 mmol/L (98-107); CREATININE 1.1 mg/dL (0.7-1.3); GLUCOSE 91 mg/dL (74-106); POTASSIUM 3.8 mmol/L (3.5-5.1); SODIUM SERUM 140 mmol/L (136-145); TOTAL BILIRUBIN 0.3 mg/dL (0.0-1.0); UREA NITROGEN, BLOOD 19 mg/dL (7-18)
--- NOTE | 2019-04-10 09:11 | NUR ---
PATIENT HAS BEEN SCREENED AND CATEGORIZED MODERATE NUTRITION RISK. PATIENT WILL BE SEEN WITHIN 3-5 DAYS OF ADMISSION. 04/12/19 04/14/[address]
--- NOTE | 2019-04-10 09:24 | NUR ---
PT RESTING IN BED. ALL NEEDS CURRENTLY MET. WILL CONTINUE TO ROND FREQUENTLY ON PT. BED IN LOW POSITION, CALL LIGHT WITHIN REACH.
[2019-04-10 09:42] VITALS: BP 143/74
--- NOTE | 2019-04-10 10:29 | NUR ---
NO FOLLOW UP PCP VISIT SET UP. ANTICIPATED DC PLANNING IS FOR SNF FOR WOUND CARE.
--- NOTE | 2019-04-10 11:32 | NUR ---
PT RESTING IN BED. PT DENIES PAIN OR SOB AT THIS TIME. WILL CONTINUE TO ROUND FREQUENTLY ON PT. BED IN LOW POSITION, CALL LIGHT WITHIN REACH.
--- NOTE | 2019-04-10 11:49 | NUR ---
WOUND CARE EVALUATION NOTE: REASON FOR EVALUATION: BLE CHRONIC WOUNDS SKIN ASSESSMENT DONE WITH THIS 74 Y/O MALE PT ADMITTED TO [facility] WITH INITIAL DX BLE INFECTION. PAST MEDICAL HX UN-KNOW. PT WAS PREVIOUS ADMITTED WITH BLE ULCERATIONS. ALL ABOVE INFORMATION OBTAINED FROM PT. AND ADMISSION H&P. PT IS AWAKE. SKIN IS WARM AND DRY, BLE NO EDEMA. DORSAL PEDAL PULSES DIMINISHED. PLAN OF CARE DISCUSSED WITH PRIMARY RN. INTEGUMENTARY: -BLE LIU DRY SCALY SKIN -LEFT MEDIAL MALLEOLUS EXTENDED TO ACHILLES AND LEFT DORSAL FEET SKIN INTACT NO LESIONS, MULTIPLE DRY SCABS TO TOES. -LEFT 2ND AND 3RD DIGIT TOES, MULTIPLE OPEN WOUNDS WITH LARGEST 0.5X0.5CM WITH SUPERFICIAL DEPTH, WOUND BED RED, MOIST AND CLEAN, NO ODOR. -CHRONIC CELLULITIS ULCERATION RIGHT LATERAL MALLEOLUS EXTENDED TO ACHILLES AND RIGHT DORSAL FEET 19X8 CM, DEPTH UTD, WOUND BED INFECTED TISSUE 100% YELLOW SOFT SLOUGH TISSUE, MOIST, MILD ODOR, PHONG WOUND SKIN ERYTHEMA. RECOMMENDATIONS: -APPLY HYDRA GUARD TO UPPER EXTREMITIES , R/L GROINS DRY SCABS BID AND PRN IF SOILING -PAINT LEFT 2ND AND 3RD DIGIT TOES WITH BETADINE SOLUTION BID AND LEAVE IT OPEN TO AIR - CLEANSE RIGHT LATERAL MALLEOLUS EXTENDED TO ACHILLES AND RIGHT DORSAL FEET WITH WOUND CLEANSING SOLUTION AND APPLY XEROFORM DRESSING WRAP WITH KERLIX ROLLS LIGHTLY Q3 DAYS AND PRN IF SOILING -OFFLOAD BILATERAL HEELS BY PLACING PILLOWS UNDER CALVES UNLESS OTHERWISE CONTRAINDICATED -PRESSURE REDISTRIBUTION SURFACE THERAPY BY WEDGE POSITIONER -TURN AND REPOSITION Q2H, OFFLOAD SACRALCOCCYX AND BUTTOCKS BY TURNING RIGHT AND LEFT -CONTINUE TO FOLLOW RD RECOMMENDATIONS ALL ABOVE RECOMMENDATIONS DISCUSSED WITH PRIMARY RN. WILL FOLLOW UP PT Q7-10 DAYS. PLEASE CONTACT WOUND CARE NURSE FOR ANY QUESTION AND CHANGE OF WOUND CONDITION.
--- NOTE | 2019-04-10 13:38 | NUR ---
PT RESTING IN BED WATCHING TV. NO COMPLAINTS OF PAIN OR DISTRESS. WILL CONTINUE TO ROUND FREQUENTLY ON PT. BED IN LOW POSITION, CALL LIGHT WITHIN REACH.
[2019-04-10] MEDS: HYDRAGUARD CREAM TP SCH (13:49)
[2019-04-10] MEDS: GAUZE TP SCH (13:49)
--- NOTE | 2019-04-10 15:47 | NUR ---
PT RESTING IN BED. ALL NEEDS CURRENTLY MET. WILL CONTINUE TO MONITOR PT CLOSELY.
[2019-04-10 16:00] VITALS: BP 132/72
--- NOTE | 2019-04-10 17:16 | NUR ---
PT RESTING IN BED WATCHING TV. ALL NEEDS CURRENTLY MET. WILL CONTINUE TO ROUND CLOSELY ON PT.
--- NOTE | 2019-04-10 19:30 | NUR ---
Received endorsement from AM shift RN; patient A/Ox4, able to make needs known, Bulgarian speaking, non-ambulatory. Introduced self, updated board. No SOB or distress noted, on room air. IV site left forearm, 20 gauge, saline locked. Bed in the lowest position, call light within reach. Initial assessment done. Will continue to monitor. Addendum: 04/10/19 at 1937 by Efrain Thacker RN Time is 1934
--- NOTE | 2019-04-10 19:35 | NUR ---
ENDORSED PT TO CLIENT SERVICE EXECUTIVE FOR CONTINUITY OF CARE. PT IN STABLE CONDITION AT THIS TIME.
--- NOTE | 2019-04-10 19:40 | NUR ---
Received endorsement from AM shift RN; patient A/Ox4, able to make needs known, on bedrest. Introduced self, updated board. No SOB or distress noted, on room air. IV site on left forearm, 20 gauge, saline locked. Bed in the lowest position, call light within reach. Initial assessment done. Will continue to monitor. Addendum: 04/11/19 at 0730 by Efrain Thacker RN 18 gauge
--- NOTE | 2019-04-10 21:35 | NUR ---
Due meds given, tolerated well.
--- NOTE | 2019-04-10 23:10 | NUR ---
Vitals taken; patient asleep on right lateral side, visible chest rise and fall noted.
[2019-04-11] VITALS: BP 122/63
[2019-04-11] MEDS: HYDRAGUARD CREAM TP SCH ×2 (01:02→13:22)
--- NOTE | 2019-04-11 01:33 | NUR ---
Checks made; no distress noted.
--- NOTE | 2019-04-11 03:30 | NUR ---
Rounds done; patient asleep, no distress noted.
--- NOTE | 2019-04-11 05:50 | NUR ---
Frequent checks made; patient asleep, visible chest rise and fall noted.
--- NOTE | 2019-04-11 07:15 | NUR ---
Endorsed patient to AM shift RN for continuity of care; patient in stable condition.
--- NOTE | 2019-04-11 07:17 | NUR ---
RECEIVED REPORT FROM NIGHT RN. PT RESTING IN BED. AAOX4. NO S/S OF ACUTE DISTRESS. PT DENIES PAIN. IV SITE PATENT AND INTACT. DRESSING DRY AND INTACT. CALL LIGHT WITHIN REACH. SAFETY MEASURES ENSURED. WILL CONTINUE TO MONITOR
[2019-04-11 08:00] VITALS: BP 133/89
--- NOTE | 2019-04-11 08:43 | NUR ---
MARGO contacted [facility] CM Berta [phone]. Berta provided contracted SNF facilities to send inquiries to. MARGO faxed clinical information to [facility] and [facility]. MARGO/CM will follow up as needed.
--- NOTE | 2019-04-11 11:37 | NUR ---
PT SLEEPING IN BED. NO S/S OF ACUTE DISTRESS. PT DENIES PAIN. CALL LIGHT WITHIN REACH. SAFETY MEASURES ENSURED. WILL CONTINUE TO MONITOR.
[2019-04-11 11:49] VITALS: BP 133/89
--- NOTE | 2019-04-11 11:49 | NUR ---
MARGO contacted [facility] CM Berta [phone] for a list of contracted SNFs available for patient. Berta provided contact information for [facility] and [facility]. MARGO contacted [facility] [phone] and spoke to Alireza. Alireza stated that patient would be in room 214B and accepting physician would be Dr. Napoles. MARGO contacted Berta who provided transportation authorization through [facility]: #[id number]. MARGO contacted [facility] and spoke to Esther [phone]. Esther coordinated transportation for patient from [facility] to [facility] at 4:30PM. MARGO informed nursing staff of transportation details. MARGO/ROSAURA will follow up as needed.
--- NOTE | 2019-04-11 12:42 | NUR ---
MARGO was contacted by bowling alley floors installer of Daniel [facility] [phone]. Riya informed MARGO that patient's room will be changed to 222B. MARGO/CM will follow up as needed.
[2019-04-11] MEDS: GAUZE TP SCH (13:22)
[2019-04-11 16:00] VITALS: BP 127/76
[2019-04-11] MEDS ORDERED: [UNRECOGNIZED DRUG - CODE] IV (16:19)
--- NOTE | 2019-04-11 16:58 | NUR ---
DISCHARGE INSTRUCTIONS PROVIDED. PT VERBALIZED UNDERSTANDING. IV PATENT AND INTACT. [facility] HERE FOR TRANSPORT. NO S/S OF ACUTE DISTRESS. PT WHEELED TO FRONT LOBBY.
== END 2019-04-11 17:10 | DRG 383 ==
LOC: MED 12:38 → MTU 14:09
PROVIDERS: ADMIT Internal Medicine Pulmonary Disease; ATTEND Internal Medicine Pulmonary Disease
DX: L03.115 Cellulitis of right lower limb (principal); E46 Unspecified protein-calorie malnutrition; E87.2 Acidosis; L97.519 Non-pressure chronic ulcer of other part of right foot with unspecified severity; L97.529 Non-pressure chronic ulcer of other part of left foot with unspecified severity; L97.919 Non-pressure chronic ulcer of unspecified part of right lower leg with unspecified severity; Z59.0 Homelessness; Z68.22 Body mass index [BMI] 22.0-22.9, adult; Z60.2 Problems related to living alone
CPT/HCPCS: 36415; 71045; 73630; 80053; 81003; 82550; 83605; 84484; 85025; 85610; 85730; 87040; 87081; 87086; 93005; 96361; 96365; 99285; J0690; J0696; J7030; J7060; Q0092

== ENCOUNTER 2019-05-17 03:12 | Inpatient (IN) | payer OTHER, MEDICARE ==
[~2019-05-17] VITALS: Ht 175.3 cm; Wt 81.6 kg
[~2019-05-17 03:12] MED LIST changes: -TYL650S RC; -VITC500 PO; +[UNRECOGNIZED DRUG - CODE] IV
--- NOTE | 2019-05-17 03:20 | NUR ---
BIBA TO ER BED 5
--- NOTE | 2019-05-17 03:25 | NUR ---
74 YO M BIBA FROM STREET. PER EMS, PT WAS FOUND SLEEPING ON GROUND IN CONSTRUCTION SITE ON [facility] BY PD. PT WAS DISORIENTED AND FOUND TO HAVE A MEDICAL BRACELET FROM [facility]. EMS CALLED. PER PD, PT WAS REPORTED MISSING FROM [facility] MARCH 20 2019 AND WAS RECENTLY DISCHARGED 05/14/[address] [facility] FOR CELLULITIS TO BLE. PT PLACED ON 5150 HOLD FOR GRAVELY DISABLED BY MELY VYAS. -- PT ARRIVES TO ED AWAKE, A/O X 1; NAME ONLY. CALM, COOPERATIVE. ANSWERS QUESTIONS ABLE. BEHAVIOR IS CONFUSED AND STATES HE WAS WAITING FOR SOMEONE TO PICK HIM UP FROM WHERE HE WAS SLEEPING BUT CANNOT REMEMBER WHO OR WHY. PT ABLE TO COMMUNICATE NEEDS/WANTS. -- SKIN PINK, WARM, DRY. POOR HYGIENE NOTED.BREATHING EVEN, UNLABORED. -- CLOSED WOUND NOTED TO ANTERIOR RIGHT FOOT. DRESSING IN PLACE. SEVERAL CALLUSES NOTED TO BOTH FEET. PMH-- DENIES RX-- DENIES
--- NOTE | 2019-05-17 03:30 | NUR ---
LAB AT BEDSIDE DRAWING BLOOD.
[2019-05-17 03:37] VITALS: BP 158/86
[2019-05-17 03:39] LABS: BASOPHILS % (AUTO) 0.4 % (0.0-2.0); EOSINOPHILS # (AUTO) 0.2 K/uL (0-0.4); EOSINOPHILS % (AUTO) 1.4 % (0.0-4.0); HEMATOCRIT 39.4 % (36-52); HEMOGLOBIN 12.8 g/dL (12.0-18.0); LYMPHOCYTES # (AUTO) 1.4 K/uL (2.0-11.5); LYMPHOCYTES % (AUTO) 12.1 % (20.5-51.1); MEAN CORPUSCULAR HEMOGLOBIN 28 pg (27-31); MEAN CORPUSCULAR HGB CONC 32 g/dL (33-37); MEAN CORPUSCULAR VOLUME 85.6 fL (80-94); MONOCYTES # (AUTO) 0.8 K/uL (0.8-1.0); MONOCYTES % (AUTO) 7.2 % (1.7-9.3); NEUTROPHILS # (AUTO) 9.1 K/uL (1.8-7.7); NEUTROPHILS % (AUTO) 78.9 % (42.2-75.2); PLATELET COUNT (AUTO) 179 K/uL (140-450); RED CELL DISTRIBUTION WIDTH 15.5 % (11.6-13.7); WHITE BLOOD COUNT (AUTO) 11.6 K/uL (4.8-10.8)
--- NOTE | 2019-05-17 03:43 | NUR ---
PT TAKEN TO CT VIA RHUMERA.
[2019-05-17 03:57] LABS: ANION GAP 12.9 (8-16); CARBON DIOXIDE 27.5 mmol/L (21-32); CHLORIDE 103 mmol/L (98-107); CREATININE 1.3 mg/dL (0.7-1.3); GLUCOSE 96 mg/dL (74-106); POTASSIUM 3.4 mmol/L (3.5-5.1); SODIUM SERUM 140 mmol/L (136-145); UREA NITROGEN, BLOOD 54 mg/dL (7-18)
--- NOTE | 2019-05-17 04:00 | NUR ---
PT RETURNED FROM CT.
[2019-05-17 04:02] LABS: ALBUMIN 3.8 g/dL (3.4-5.0); ASPARTATE AMINOTRANSFERASE 26 U/L (15-37); TOTAL BILIRUBIN 0.8 mg/dL (0.0-1.0)
[2019-05-17 04:04] LABS: ACETAMINOPHEN < 0.5 ug/ml (10-30); SALICYLATE < 2.8 mg/dL (2.8-20.0)
[2019-05-17] MEDS ORDERED: NACL 0.9% 1,000 ML IV ONE (04:25)
--- NOTE | 2019-05-17 05:00 | NUR ---
# 14 FR straight catheter utilizing sterile technique. Immediate return of 400 ml clear, yellow urine noted. Urine sample collected and sent to lab. Pt tolerated procedure well.
--- NOTE | 2019-05-17 05:22 | NUR ---
Patient will be admitted to care of Dr. Pham. Admited to MS. Will go to room 124B. Belongings list completed. Report to KATJA Cavazos.
--- NOTE | 2019-05-17 05:45 | NUR ---
RECEIVED FROM ER PER TANIKA AWAKE AND ALERT. NO SOB. DX. OF CHANGE OF LOC. HX. DEMENTIA. NOTED PT. UNABLE TO GIVE HISTORY AND ANSWER QUESTIONS . ABLE TO VERBALIZE SIMPLE NEEDS. NEEDS WILL BE ANTICIPATED AND WILL BE MET. TOTAL CARE RT DISORIENTED. BILATERAL LOWER EXTREMITIES/ FOOT PART WITH SCABS AND OPEN TINY WOUNDS.
[2019-05-17 06:15] VITALS: BP 158/86
--- NOTE | 2019-05-17 06:30 | NUR ---
TOES WITH OPEN WOUNDS. CLEANSED INITIALLY WITH MILD SOAP AND WATER. PATTED DRY AND LEFT OPEN TO AIR. FOR WOUND CONSULT AND EVALUATION.
--- NOTE | 2019-05-17 07:21 | NUR ---
WILL ENDORSE TO AM RN FOR CONTINUITY OF CARE AWAKE AND ALERT. WITH DISORIENTATION. POOR HISTORIAN. ABLE TO VERBALIZE SIMPLE NEEDS IN [place].
--- NOTE | 2019-05-17 07:25 | NUR ---
RECEIVED BEDSIDE REPORT FROM KATJA MERCHANT. PT STABLE, SLEEPING, BUT EASILY AROUSABLE. NO SIGNS OF DISTRESS NOTED. DENIES PAIN OR SOB. NO REDNESS, SWELLING, OR INFLAMMATION NOTED ON IV SITE. CALL TOUSSAINT WITHIN REACH. BED IN LOWEST POSITION, BED ALARM ON. SAFETY MEASURES IN PLACE. PLAN OF CARE REVIEWED.
--- NOTE | 2019-05-17 07:30 | NUR ---
RECEIVED TELEPHONE ORDER FROM DR GEORGES FOR REGULAR DIET, PT EVALUATION, AND SOCIAL SERVICE REQUEST. WILL PUT IN ORDERS.
[2019-05-17 08:00] VITALS: BP 144/78
--- NOTE | 2019-05-17 08:12 | NUR ---
MADE DR ROTH AWARE OF K+ 3.4. RECEIVED VERBAL ORDER FROM DR ROTH FOR K DUR 40 MEQ ONCE. WILL PUT IN ORDER.
--- NOTE | 2019-05-17 08:19 | NUR ---
PATIENT HAS BEEN SCREENED AND CATEGORIZED MODERATE NUTRITION RISK. PATIENT WILL BE SEEN WITHIN 3-5 DAYS OF ADMISSION. 05/19/[address]
[2019-05-17] MEDS ORDERED: POTASSIUM CHLORIDE 10 MEQ TABER PO SCH (08:30)
--- NOTE | 2019-05-17 09:01 | NUR ---
ADMINISTERED SCHEDULED K-DUR, PT TOLERATED WELL. NO OTHER NEEDS AT THIS TIME.
--- NOTE | 2019-05-17 10:51 | NUR ---
WOUND CARE EVALUATION NOTE: REASON FOR EVALUATION: BLE CHRONIC WOUNDS SKIN ASSESSMENT DONE WITH THIS 74 Y/O MALE PT ADMITTED TO [facility] WITH INITIAL DX GRAVELY DISABLE. RECENTLY DISCHARGED FROM [facility]. PAST MEDICAL HX WITH CELLULITIS AND CHRONIC WOUND. PT WAS PREVIOUS ADMITTED WITH BLE ULCERATIONS. ALL ABOVE INFORMATION OBTAINED FROM ADMISSION H&P. PT IS AWAKE. SKIN IS WARM AND DRY, BLE NO EDEMA. PREVIOUS CELLULITIS ULCERATIONS TO BLE AND FEET IMPROVING TO THE SCARS AND THIN SCABS WITH REMODELING STAGE. DEFORMITIES TO R/L HALLUS WITH LIMITED ROM TO ANKLES AND TOES. PEDAL PULSES PRESENT AND NORMAL, CAPILLARY REFILLED UNABLE TO ASSESS DUE TO FUNGAL LIKES NAILS X 10 TOES. POOR PERSONAL HYGIENE OBSERVED. QUESTION PT. IF HE WEARS A FITTED GOOD CONDITION FOOTWEAR, PT. AVOID EYE CONTACT AND DID NOT ANSWER QUESTIONS. PLAN OF CARE DISCUSSED WITH PRIMARY RN AND PT. PT VERBALIZES UNDERSTANDING INTEGUMENTARY: -BILATERAL UPPER ARMS DRY SKIN -BLANCHABLE REDNESS TO SACRALCOCCYX AND R/L INNER BUTTOCKS -MULTIPLE HEALING SCARS/ THIN SCABS TO LEFT DORSAL FOOT AND 2,3,4 DIGIT TOES, RIGHT /LEFT METATARSAL HEAD, RIGHT MALLEOLUS, RIGHT POSTERIOR ACHILLES AND LEFT MEDIAL MALLEOLUS -RIGHT FOOT INTERSPACES MOIST WITH PIN POINTS THIN SCABS RECOMMENDATIONS: -APPLY HYDRAGUARD TO UPPER EXTREMITIES, SACRALCOCCYX AND R/L INNER BUTTOCKS BID AND PRN IF SOILING -CLEANSE FEET/TOES WITH SOAP AND WATER, PAINT-MULTIPLE HEALING SCARS/ THIN SCABS TO LEFT DORSAL FOOT AND 2,3,4 DIGIT TOES, RIGHT /LEFT METATARSAL HEAD, RIGHT MALLEOLUS, RIGHT POSTERIOR ACHILLES AND LEFT MEDIAL MALLEOLUS WITH BETADINE SOLUTION BID AND LEAVE IT OPEN TO AIR QD AND PRN IF SOILING -OFFLOAD BILATERAL HEELS BY PLACING PILLOWS UNDER CALVES UNLESS OTHERWISE CONTRAINDICATED -PRESSURE REDISTRIBUTION SURFACE THERAPY BY WEDGE POSITIONER -TURN AND REPOSITION Q2H, OFFLOAD SACRALCOCCYX AND BUTTOCKS BY TURNING RIGHT AND LEFT -CONTINUE TO FOLLOW RD RECOMMENDATIONS -PLEASE FOLLOW UP OUT PATIENT FILLING STATION ATTENDANT UPON DISCHARGED ALL ABOVE RECOMMENDATIONS DISCUSSED WITH PRIMARY RN. PLEASE CONTACT WOUND CARE NURSE FOR ANY QUESTION AND CHANGE OF WOUND CONDITION.
--- NOTE | 2019-05-17 11:15 | NUR ---
MRSA NARES SWAB AND URINE SAMPLE COLLECTED AND SENT TO LAB.
[2019-05-17 12:46] LABS: APPEARANCE,URINE CLEAR (CLEAR); BILIRUBIN,URINE NEGATIVE (NEGATIVE); BLOOD, URINE 1+ (NEGATIVE); COLOR,URINE YELLOW (YELLOW); LEUKOCYTE ESTERASE ,URINE NEGATIVE (NEGATIVE); NITRITE, URINE NEGATIVE (NEGATIVE); PH,URINE 5.5 (5.0-9.0); UGLUCOSE NEGATIVE (NEGATIVE)
[2019-05-17 12:51] LABS: BARBITURATE, URINE NEG. ng/ml (NEG <=200); BENZODIAZEPINE, URINE NEG. ng/mL (NEG <=200); CANNABINOID, URINE NEG. ng/mL (NEG <=50); COCAINE, URINE NEG. ng/mL (NEG <=300); OPIATE, URINE NEG. ng/mL (NEG <=2000); PHENCYCLIDINE SCREEN,URINE NEG. ng/mL (NEG <=25)
[2019-05-17 12:54] LABS: RBC,URINE 0-5 /HPF (0-5); WBC,URINE 0-5 /HPF (0-5)
[2019-05-17] MEDS ORDERED: MILD SOAP AND WATER TP SCH (13:00)
[2019-05-17] MEDS ORDERED: HYDRAGUARD CREAM TP SCH (13:00)
[2019-05-17] MEDS ORDERED: GAUZE TP SCH (13:00)
--- NOTE | 2019-05-17 13:30 | NUR ---
PT STABLE, SLEEPING, BUT EASILY AROUSABLE. NO SIGNS OF DISTRESS NOTED.
--- NOTE | 2019-05-17 14:08 | NUR ---
PER DR ROTH ORDER FAXED THE REQUEST FOR HIGHER LEVEL OF CARE TO [facility] , CORNELIO HOWELL AND TIFFANY FROST
--- NOTE | 2019-05-17 14:37 | NUR ---
RECEIVED A CALL FROM [facility] SPOKE WITH JAYLYN AFTER THEY REVIEW THE CASE SHE WILL CALL BACK
--- NOTE | 2019-05-17 15:55 | NUR ---
VITAL SIGNS TAKEN, PT STABLE. NO SIGNS OF DISTRESS NOTED.
[2019-05-17 16:00] VITALS: BP 146/80
--- NOTE | 2019-05-17 16:17 | NUR ---
[facility] ACCEPTED PT, WAITING FOR THE BED ACCEPTING DR WILL BE DR ROMERO AND NEURO SURGEON DR PERKINS. WISAM CUI WILL CALL THE FLOOR PROVIDED THE FLOOR UNIT. ARRANGED TRANSPORT WITH [facility] PROVIDED AUTH# [id number] PLACE IT WILL CALL NOTIFIED TACO LUTZ
--- NOTE | 2019-05-17 17:45 | NUR ---
PT STABLE, SLEEPING, BUT EASILY AROUSABLE. NO SIGNS OF DISTRESS NOTED. WILL CONTINUE TO MONITOR.
--- NOTE | 2019-05-17 18:21 | NUR ---
SET UP TRANSPORTATION THRU [facility], SPOKE WITH LAZARO. EARLIEST ETA WILL BE AT 8PM TONIGHT. ANETA HIGHTOWER ASSIGNED MADE AWARE.
--- NOTE | 2019-05-17 18:42 | NUR ---
REPORT GIVEN TO KATJA BROCK FROM [facility].
--- NOTE | 2019-05-17 19:15 | NUR ---
ENDORSED PT TO RN LILY FOR CONTINUITY OF CARE. PT STABLE.
--- NOTE | 2019-05-17 19:30 | NUR ---
RECEIVED BEDSIDE REPORT FROM DAY SHIFT NURSE. PATIENT IS AWAKE, ALERT, AND COOPERATIVE. RESPIRATION EVEN UNLABORED ON ROOM AIR. NO DISTRESS NOTED. SKIN IS WARM AND DRY. IV PATENT AND INTACT. PLAN OF CARE WAS DISCUSSED. ALL SAFETY MEASURES IN PLACE. PATIENT IS BEING DISCHARGED TONIGHT. AWAITING FOR PICKUP AROUND 1999'. WILL CONTINUE TO MONITOR.
--- NOTE | 2019-05-17 20:00 | NUR ---
INITIAL ASSESSMENT DONE. VITALS WERE TAKEN. PATIENT IN STABLE CONDITION. WILL CONTINUE TO MONITOR
--- NOTE | 2019-05-17 20:30 | NUR ---
PATIENT LEFT THE FACILITY AT 2030 WITH PERSONAL BELONGINGS. PATIENT WAS ACCOMPANIED BY 2 PERSONNEL FROM [facility] HEADING TO [facility]. ALL PAPERWORS SIGNED AND GIVEN TO THE PATIENT. DISCHARGE INSTRUCTION WAS GIVEN AND VERBALIZES UNDERSTANDING. PATIENT IN STABLE CONDITION.
== END 2019-05-17 20:25 | disposition short-term general hospital (02) | DRG 47 ==
LOC: MED 03:12 → MTU 04:36
PROVIDERS: ADMIT Internal Medicine Pulmonary Disease; ATTEND Internal Medicine Pulmonary Disease
DX: I67.89 Other cerebrovascular disease (principal); F03.90 Unspecified dementia, unspecified severity, without behavioral disturbance, psychotic disturbance, mood disturbance, and anxiety; E87.6 Hypokalemia
CPT/HCPCS: 36415; 70450; 71045; 80053; 80305; 81001; 84484; 85025; 87081; 96360; 97116; 97161-GP; 97530; 99285; C1758; G0480; G0482; J7030; Q0092

== ENCOUNTER 2019-07-04 14:57 | Inpatient (IN) | payer OTHER, MEDICARE ==
[~2019-07-04] VITALS: Ht 175.3 cm; Wt 63.5 kg
[2019-07-04 14:57] VITALS: BP 155/79
[2019-07-04] MEDS ORDERED: NACL 0.9% 500 ML IV ONE (15:25)
[2019-07-04 16:25] LABS: BASOPHILS % (AUTO) 0.4 % (0.0-2.0); EOSINOPHILS # (AUTO) 0.1 K/uL (0-0.4); EOSINOPHILS % (AUTO) 1.6 % (0.0-4.0); HEMATOCRIT 35.1 % (36-52); HEMOGLOBIN 11.7 g/dL (12.0-18.0); LYMPHOCYTES # (AUTO) 1.2 K/uL (2.0-11.5); LYMPHOCYTES % (AUTO) 13.4 % (20.5-51.1); MEAN CORPUSCULAR HEMOGLOBIN 29 pg (27-31); MEAN CORPUSCULAR HGB CONC 33 g/dL (33-37); MEAN CORPUSCULAR VOLUME 86.4 fL (80-94); MONOCYTES # (AUTO) 0.7 K/uL (0.8-1.0); MONOCYTES % (AUTO) 8.2 % (1.7-9.3); NEUTROPHILS # (AUTO) 6.6 K/uL (1.8-7.7); NEUTROPHILS % (AUTO) 76.4 % (42.2-75.2); PLATELET COUNT (AUTO) 233 K/uL (140-450); RED BLOOD CELL COUNT(AUTO) 4.07 MIL/uL (4.20-6.10); RED CELL DISTRIBUTION WIDTH 15.3 % (11.6-13.7); WHITE BLOOD COUNT (AUTO) 8.7 K/uL (4.8-10.8)
[2019-07-04 17:09] LABS: ANION GAP 13.4 (8-16); ASPARTATE AMINOTRANSFERASE 21 U/L (15-37); CARBON DIOXIDE 27.1 mmol/L (21-32); CHLORIDE 104 mmol/L (98-107); CREATININE 1.3 mg/dL (0.7-1.3); GLUCOSE 88 mg/dL (74-106); POTASSIUM 3.5 mmol/L (3.5-5.1); SODIUM SERUM 141 mmol/L (136-145); TOTAL BILIRUBIN 0.3 mg/dL (0.0-1.0); UREA NITROGEN, BLOOD 24 mg/dL (7-18)
[2019-07-04 17:21] LABS: ACETAMINOPHEN < 0.5 ug/ml (10-30); SALICYLATE < 2.8 mg/dL (2.8-20.0)
[2019-07-04 18:00] LABS: BARBITURATE, URINE NEG. ng/ml (NEG <=200); BENZODIAZEPINE, URINE NEG. ng/mL (NEG <=200); CANNABINOID, URINE NEG. ng/mL (NEG <=50); COCAINE, URINE NEG. ng/mL (NEG <=300); OPIATE, URINE NEG. ng/mL (NEG <=2000); PHENCYCLIDINE SCREEN,URINE NEG. ng/mL (NEG <=25)
[2019-07-04] MEDS ORDERED: ALUMINUM HYD/MAG/SIMETHICONE 30 ML UDC PO PRN (19:10)
[2019-07-04] MEDS ORDERED: ALBUTEROL 0.083% 2.5 MG/3 ML NEBU INH PRN (19:10)
[2019-07-04] MEDS ORDERED: ONDANSETRON 4 MG/2 ML VIAL IVP PRN (19:10)
[2019-07-04] MEDS ORDERED: HYDROcodone/APAP 5/325 MG 1 TAB TAB PO PRN ×2 (19:10)
[2019-07-04] MEDS ORDERED: BISACODYL 10 MG SUPP RC PRN (19:10)
[2019-07-04] MEDS ORDERED: ACETAMINOPHEN 650 MG SUPP RC PRN (19:10)
[2019-07-04] MEDS ORDERED: LORazepam 2 MG/ML VIAL IVP PRN (19:10)
[2019-07-04] MEDS ORDERED: MORPHINE SULFATE 2 MG/ML SYR IVP PRN (19:10)
[2019-07-04] MEDS ORDERED: POTASSIUM CHLORIDE 10 MEQ TABER PO PRN (19:10)
[2019-07-04] MEDS ORDERED: DOCUSATE SODIUM 250 MG GELCAP PO PRN (19:10)
[2019-07-04] MEDS ORDERED: MAG SULF 2000 MG/WATER PREMIX 50 ML IV PRN (19:10)
[2019-07-04] MEDS ORDERED: ACETAMINOPHEN 325 MG TAB PO PRN (19:10)
[2019-07-04] MEDS ORDERED: cloNIDine 0.1 MG TAB PO PRN (19:10)
[2019-07-04] MEDS ORDERED: SODIUM PHOSPHATE 118 ML ENEM RC PRN (19:10)
[2019-07-04] MEDS ORDERED: ZOLPIDEM 5 MG TAB PO PRN (19:10)
[2019-07-04] MEDS ORDERED: guaiFENesin DM 200/20 MG-10 ML 10 ML UDC PO PRN (19:10)
[2019-07-04] MEDS ORDERED: IPRATROPIUM 0.02% 0.5 MG/2.5 ML NEBU INH PRN (19:10)
[2019-07-04] MEDS ORDERED: diphenhydrAMINE 50 MG/ML VIAL IVP PRN (19:10)
[2019-07-04 21:00] VITALS: BP 140/65
[2019-07-05] VITALS: BP 128/62
[2019-07-05] MEDS ORDERED: HYDRAGUARD CREAM TP PRN ×2 (01:35→03:40)
[2019-07-05] MEDS ORDERED: HYDRAGUARD CREAM TP ONE (03:39)
[2019-07-05 08:00] VITALS: BP 149/97
[2019-07-05] MEDS: amLODIPine 5 MG TAB PO SCH (09:44)
[2019-07-05] MEDS: HYDRAGUARD CREAM TP SCH (13:00)
[2019-07-05] MEDS: MILD SOAP AND WATER TP SCH (13:00)
[2019-07-05] MEDS: GAUZE TP SCH (13:00)
[2019-07-05] MEDS ORDERED: HYDRAGUARD CREAM TP SCH (13:00)
[2019-07-05 16:00] VITALS: BP 147/85
[2019-07-06] VITALS: BP 133/70
[2019-07-06] MEDS: HYDRAGUARD CREAM TP SCH ×2 (00:42→13:09)
[2019-07-06] MEDS: MILD SOAP AND WATER TP SCH ×2 (00:43→13:09)
[2019-07-06 08:00] VITALS: BP 156/90
[2019-07-06] MEDS: amLODIPine 5 MG TAB PO SCH (09:49)
[2019-07-06] MEDS: ASCORBIC ACID 500 MG TAB PO SCH (09:49)
[2019-07-06] MEDS: MULTIVITAMIN 1 TAB PO SCH (09:49)
[2019-07-06] MEDS: GAUZE TP SCH (13:08)
[2019-07-06 16:00] VITALS: BP 156/90
[2019-07-07] VITALS: BP 140/76
[2019-07-07] MEDS: HYDRAGUARD CREAM TP SCH ×2 (01:34→14:02)
[2019-07-07] MEDS: MILD SOAP AND WATER TP SCH ×2 (01:34→14:05)
[2019-07-07 08:00] VITALS: BP 158/105
[2019-07-07] MEDS: ASCORBIC ACID 500 MG TAB PO SCH (09:09)
[2019-07-07] MEDS: MULTIVITAMIN 1 TAB PO SCH (09:09)
[2019-07-07] MEDS: amLODIPine 5 MG TAB PO SCH (09:10)
[2019-07-07 12:15] LABS: HEMATOCRIT 37.3 % (36-52); HEMOGLOBIN 11.9 g/dL (12.0-18.0); MEAN CORPUSCULAR HEMOGLOBIN 28 pg (27-31); MEAN CORPUSCULAR HGB CONC 32 g/dL (33-37); MEAN CORPUSCULAR VOLUME 87.5 fL (80-94); PLATELET COUNT (AUTO) 245 K/uL (140-450); RED BLOOD CELL COUNT(AUTO) 4.26 MIL/uL (4.20-6.10); RED CELL DISTRIBUTION WIDTH 15.4 % (11.6-13.7); WHITE BLOOD COUNT (AUTO) 11.7 K/uL (4.8-10.8)
[2019-07-07 12:37] LABS: ANION GAP 11.5 (8-16); CARBON DIOXIDE 27.3 mmol/L (21-32); CHLORIDE 102 mmol/L (98-107); CREATININE 0.9 mg/dL (0.7-1.3); GLUCOSE 96 mg/dL (74-106); POTASSIUM 3.8 mmol/L (3.5-5.1); SODIUM SERUM 137 mmol/L (136-145); UREA NITROGEN, BLOOD 23 mg/dL (7-18)
[2019-07-07 12:46] LABS: MAGNESIUM 1.6 mg/dL (1.8-2.4); PHOSPHORUS 1.8 mg/dL (2.5-4.9)
[2019-07-07 12:57] LABS: BASOPHILS % (MANUAL) 0 % (0-2); EOSINOPHILS % (MANUAL) 3 % (0-4); LYMPHOCYTES % (MANUAL) 12 % (20-46); MONOCYTES % (MANUAL) 7 % (5-12)
[2019-07-07] MEDS ORDERED: VITC500 PO (13:38)
[2019-07-07] MEDS ORDERED: ACET-9525 PO (13:38)
[2019-07-07] MEDS ORDERED: CLON0.1T42 PO (13:38)
[2019-07-07] MEDS ORDERED: AMLO5TAB6 PO (13:40)
[2019-07-07] MEDS: GAUZE TP SCH (14:02)
[2019-07-07 16:00] VITALS: BP 143/83
[2019-07-07] MEDS ORDERED: MAGNESIUM OXIDE 400 MG TAB PO ONE (18:40)
[2019-07-07] MEDS: MAGNESIUM OXIDE 400 MG TAB PO PRN (18:52)
[2019-07-08] VITALS: BP 140/92
[2019-07-08] MEDS: MILD SOAP AND WATER TP SCH ×2 (01:00→14:09)
[2019-07-08] MEDS: HYDRAGUARD CREAM TP SCH ×2 (01:00→14:09)
[2019-07-08 06:33] LABS: ANION GAP 11.5 (8-16); CARBON DIOXIDE 27.7 mmol/L (21-32); CHLORIDE 104 mmol/L (98-107); CREATININE 0.9 mg/dL (0.7-1.3); GLUCOSE 86 mg/dL (74-106); POTASSIUM 4.2 mmol/L (3.5-5.1); SODIUM SERUM 139 mmol/L (136-145); UREA NITROGEN, BLOOD 24 mg/dL (7-18)
[2019-07-08 06:37] LABS: MAGNESIUM 1.6 mg/dL (1.8-2.4); PHOSPHORUS 1.6 mg/dL (2.5-4.9)
[2019-07-08 07:25] LABS: HEMATOCRIT 39.2 % (36-52); HEMOGLOBIN 12.8 g/dL (12.0-18.0); MEAN CORPUSCULAR HEMOGLOBIN 28 pg (27-31); MEAN CORPUSCULAR HGB CONC 33 g/dL (33-37); MEAN CORPUSCULAR VOLUME 86.9 fL (80-94); PLATELET COUNT (AUTO) 227 K/uL (140-450); RED BLOOD CELL COUNT(AUTO) 4.52 MIL/uL (4.20-6.10); RED CELL DISTRIBUTION WIDTH 15.2 % (11.6-13.7); WHITE BLOOD COUNT (AUTO) 9.9 K/uL (4.8-10.8)
[2019-07-08 08:00] VITALS: BP 139/82
[2019-07-08] MEDS: ASCORBIC ACID 500 MG TAB PO SCH (08:57)
[2019-07-08] MEDS: MULTIVITAMIN 1 TAB PO SCH (08:57)
[2019-07-08] MEDS ORDERED: amLODIPine 5 MG TAB PO SCH (09:00)
[2019-07-08 09:27] LABS: LYMPHOCYTES % (MANUAL) 18 % (20-46); MONOCYTES % (MANUAL) 9 % (5-12)
[2019-07-08] MEDS ORDERED: MAGNESIUM OXIDE 400 MG TAB PO SCH (14:00)
[2019-07-08] MEDS: MAGNESIUM OXIDE 400 MG TAB PO PRN (14:08)
[2019-07-08] MEDS: GAUZE TP SCH (14:09)
[2019-07-08 16:00] VITALS: BP 130/80
== END 2019-07-08 23:05 | DRG 422 ==
LOC: MED 14:57 → MTU 18:20
PROVIDERS: ADMIT Internal Medicine Pulmonary Disease; ATTEND Internal Medicine Pulmonary Disease
DX: E86.0 Dehydration (principal); F03.90 Unspecified dementia, unspecified severity, without behavioral disturbance, psychotic disturbance, mood disturbance, and anxiety; E44.1 Mild protein-calorie malnutrition; M19.072 Primary osteoarthritis, left ankle and foot; S90.922A Unspecified superficial injury of left foot, initial encounter; S90.921A Unspecified superficial injury of right foot, initial encounter; X58.XXXA Exposure to other specified factors, initial encounter; Z68.20 Body mass index [BMI] 20.0-20.9, adult; F70 Mild intellectual disabilities; M19.071 Primary osteoarthritis, right ankle and foot; Z59.0 Homelessness; Y93.89 Activity, other specified; Y92.89 Other specified places as the place of occurrence of the external cause; Y99.8 Other external cause status
CPT/HCPCS: 36415; 73620; 80048; 80053; 80305; 83735; 84100; 85025; 87081; 93005; 96360; 96361; 97110; 97116; 97161-GP; 97530; 99285; G0480; G0482; J3475; J7030; Q0092

== ENCOUNTER 2020-01-13 12:55 | Inpatient (IN) | payer OTHER, MEDICARE ==
[~2020-01-13] VITALS: Ht 177.8 cm; Wt 64.9 kg
[~2020-01-13 12:55] MED LIST changes: +ACET-9525 PO; +AMLO5TAB6 PO; +CLON0.1T42 PO; +VITC500 PO; -[UNRECOGNIZED DRUG - CODE] IV
--- NOTE | 2020-01-13 12:55 | NUR ---
Patient BIBA BLS, transferred to bed 5. RN evaluating patient at bedside.
[2020-01-13 13:05] VITALS: BP 144/90
--- NOTE | 2020-01-13 13:17 | NUR ---
74 Y/M BIBA TO ED FOR MEDICAL CLEARANCE TO BE PLACED IN AN ASSISTED LIVING. PT A &O X 4. RR EVEN AND UNLABORED. LUNGS CLEAR. DENIES COUGH, CHEST PAIN, SOB, DYSURIA. PT SOILED IN FECES AND FOUL SMELLING. ABD SOFT. BS ACTIVE X 4. SKIN IN TACT. PMH- HTN RX- DENIES NKDA
--- NOTE | 2020-01-13 13:25 | NUR ---
PT WHEELCHAIRED TO SHOWER ACCOMPANIED BY QING MUNOZ, RACHEAL.
--- NOTE | 2020-01-13 14:15 | NUR ---
LAB AT BEDSIDE.
[2020-01-13 14:27] LABS: APPEARANCE,URINE CLEAR (CLEAR); BILIRUBIN,URINE NEGATIVE (NEGATIVE); BLOOD, URINE TRACE-I (NEGATIVE); COLOR,URINE YELLOW (YELLOW); LEUKOCYTE ESTERASE ,URINE NEGATIVE (NEGATIVE); NITRITE, URINE NEGATIVE (NEGATIVE); PH,URINE 7.5 (5.0-9.0); UGLUCOSE NEGATIVE (NEGATIVE)
[2020-01-13 14:28] LABS: BASOPHILS % (AUTO) 0.2 % (0.0-2.0); EOSINOPHILS % (AUTO) 0.3 % (0.0-4.0); HEMATOCRIT 36.6 % (36-52); LYMPHOCYTES # (AUTO) 1.2 K/uL (2.0-11.5); LYMPHOCYTES % (AUTO) 13.8 % (20.5-51.1); MEAN CORPUSCULAR HEMOGLOBIN 29 pg (27-31); MEAN CORPUSCULAR HGB CONC 33 g/dL (33-37); MEAN CORPUSCULAR VOLUME 88.4 fL (80-94); MONOCYTES # (AUTO) 0.6 K/uL (0.8-1.0); NEUTROPHILS # (AUTO) 6.7 K/uL (1.8-7.7); NEUTROPHILS % (AUTO) 78.7 % (42.2-75.2); PLATELET COUNT (AUTO) 220 K/uL (140-450); RED BLOOD CELL COUNT(AUTO) 4.14 MIL/uL (4.20-6.10); RED CELL DISTRIBUTION WIDTH 14.1 % (11.6-13.7); WHITE BLOOD COUNT (AUTO) 8.5 K/uL (4.8-10.8)
--- NOTE | 2020-01-13 14:35 | NUR ---
PT GIVEN A MEAL.
[2020-01-13 14:40] LABS: ALBUMIN 3.5 g/dL (3.4-5.0); ANION GAP 13.9 (8-16); ASPARTATE AMINOTRANSFERASE 22 U/L (15-37); CARBON DIOXIDE 27.6 mmol/L (21-32); CHLORIDE 104 mmol/L (98-107); CREATININE 1.7 mg/dL (0.6-1.3); GLUCOSE 113 mg/dL (74-106); POTASSIUM 3.5 mmol/L (3.5-5.1); SODIUM SERUM 142 mmol/L (136-145); TOTAL BILIRUBIN 0.4 mg/dL (0.0-1.0); UREA NITROGEN, BLOOD 30 mg/dL (7-18)
--- NOTE | 2020-01-13 15:10 | NUR ---
Pt resting in bed. RR even and unlabored. All needs met at this time. Will continue to monitor.
[2020-01-13 15:40] LABS: RBC,URINE 0-5 /HPF (0-5); WBC,URINE NONE SEEN /HPF (0-5)
[2020-01-13] MEDS ORDERED: NACL 0.9% 2,000 ML IV ONE (15:45)
--- NOTE | 2020-01-13 16:25 | NUR ---
REGULAR DIET ORDERED FOR PATIENT, ALSO CALLED DIETARY TO CONFRIM ORDER.
--- NOTE | 2020-01-13 17:31 | NUR ---
SPOKE TO EDDIE FROM [facility]-- WAS INFORMED [facility] NEEDS TO FAX OVER FACE SHEET, H & P, MED LIST, AND ERMD ORDER FOR FDC PLACEMENT.
--- NOTE | 2020-01-13 17:36 | NUR ---
LEFT MESSAGE FOR REYMUNDO, LINING CLEANER FOR MELY. WAITING FOR RETURNED CALL
--- NOTE | 2020-01-13 17:41 | NUR ---
PT GIVEN DINNER TRAY, ALL NEEDS MET AT THIS TIME. WILL CONTINUE TO MONITOR.
--- NOTE | 2020-01-13 18:37 | NUR ---
SPOKE TO REYMUNDO, MATERIAL CONTROLLER, STATES HE WILL TRY TO FOLLOW UP WITH EDDIE FROM [facility]
--- NOTE | 2020-01-13 18:53 | NUR ---
Telepsychiatry consultation ordered as requested by Dr. Ricks.
--- NOTE | 2020-01-13 19:15 | NUR ---
RECIEVED REPORT FROM MATTHEW HIGHTOWER FOR CONTINUITY OF CARE. PT RESTING IN BED COMFORTABLY.
--- NOTE | 2020-01-13 19:20 | NUR ---
PT BEING EVALUATED BY TELE PSYCH
[2020-01-13 21:21] LABS: BARBITURATE, URINE NEGATIVE ng/ml (NEG <=200); BENZODIAZEPINE, URINE NEGATIVE ng/mL (NEG <=200); CANNABINOID, URINE NEGATIVE ng/mL (NEG <=50); COCAINE, URINE NEGATIVE ng/mL (NEG <=300); OPIATE, URINE NEGATIVE ng/mL (NEG <=2000); PHENCYCLIDINE SCREEN,URINE NEGATIVE ng/mL (NEG <=25)
--- NOTE | 2020-01-13 21:43 | NUR ---
Packet received for placement. Waiting for UDS/BAL before sending for placement
--- NOTE | 2020-01-13 21:54 | NUR ---
Lab received. Will seek placement
--- NOTE | 2020-01-13 21:58 | NUR ---
[facility] s/w Izzy, do not take Medicare B with [facility] s/w Maira, no available beds tonight. Call in the AM for discharges Paul Vang s/w Bette patient to be Covid tested before consideration
--- NOTE | 2020-01-13 22:05 | NUR ---
[facility] s/w Briana, no available beds tonight. Call in the AM for discharges [facility] s/w Al no available beds tonight. Call in the AM for discharges [facility] [place] [facility] s/w Tala do not take Medicare Part B with [facility] secondary [facility] s/w Opal do not take Medicare Part B with [facility] secondary Ann Red[facility] s/w Elia do not take Medicare Part B and [facility] secondary
--- NOTE | 2020-01-13 22:14 | NUR ---
[facility] s/w Bette, no available beds tonight. Call in the AM for discharges [facility] s/w Chasity. They take Medicare part B but Medi-[facility] has to be [facility] Saman Mcgovern s/w Meliton, packet fax wait list
--- NOTE | 2020-01-13 22:23 | NUR ---
[facility]/w Kylie not able to accommodate patient with Dementia but it will case by case per Devon bell [facility] Addendum: 01/13/20 at 2231 by PHSCMDDA Per [facility] they will review on a case by case basis
[2020-01-13] MEDS ORDERED: ONDANSETRON 4 MG/2 ML VIAL IVP PRN (22:30)
[2020-01-13] MEDS ORDERED: HYDROcodone/APAP 5/325 MG 1 TAB TAB PO PRN (22:30)
[2020-01-13] MEDS ORDERED: ACETAMINOPHEN 325 MG TAB PO PRN (22:30)
--- NOTE | 2020-01-13 22:38 | NUR ---
IV LINE FLUSHED WITH A CC SYRINGE. PT ALSEEP IN BED. VSS. RR EVEN AND UNLABORED.
[2020-01-13 23:10] VITALS: BP 140/80
--- NOTE | 2020-01-13 23:10 | NUR ---
RECEIVED PT AWAKE , ALERT , CAN ANSWER SIMPLE COMMAND , CAN ADDRESS HIS NEEDS LIKE I WANT SOMETHING TO DRINK AND EAT HE SAID - WILL PROVIDE SANDWICH - ON REG DIET . FROM ER PER WHEEL CHAIR AMBULATES TO BED . ADMISSION ASSESSMENT DONE - MRSA SENT TPO LAB. PUT ON SAFETY / FALL PRECAUTION PROTOCOL - BED ALARM ON . POC DISCUSSED BUT NEEDS RE INFORCEMENT PT EASILY FORGETS THE TOPIC. OM RA - MADDIE O2 SAT WNL. SKIN INTACT . URINAL / CALL LIGHT WITHIN REACH. WILL CONT. TO MONITOR. PER ER NURSE THE PT IS ONLY ADMITTED FOR MMEDICAL CLEARANCE ; POC TO BE SENT TO FACILITY ONCE PT. IS MEDICALLY CLEARED. WILL CONT. TO MONITOR. Addendum: 01/14/20 at 0338 by Suzan Lazcano RN PT IS 51/50 DUE TO GRAVELY DISABLED- PITA
--- NOTE | 2020-01-13 23:12 | NUR ---
Patient will be admitted to [facility]. Admited to MS. Will go to room 110A. Belongings list completed. Report to KATJA STANLEY.
--- NOTE | 2020-01-14 02:00 | NUR ---
EATS SANDWICH . NO COMPLAIN MADE . WILL CONT. TO MONITOR.
--- NOTE | 2020-01-14 03:37 | NUR ---
MADE ROUNDS . SLEEPING . CHEST RISE AND FALL EQUALLY . CALL LIGHT WITHIN REACH
[2020-01-14 04:00] VITALS: BP 136/90
--- NOTE | 2020-01-14 05:41 | NUR ---
There are still no beds at any of the designated facilities accepting patients insurance. Will endorse to incoming shift to further seek placement
[2020-01-14 08:50] VITALS: BP 187/93
--- NOTE | 2020-01-14 08:50 | NUR ---
Patient resting comfortably in bed with no complaint of pain or discomfort. Assessment done. Patient stable at this time.
--- NOTE | 2020-01-14 08:50 | NUR ---
Patient resting comfortably in bed with no distress noted. Denies any pain at this time. Patient stable.
--- NOTE | 2020-01-14 08:59 | NUR ---
PATIENT HAS BEEN SCREENED AND CATEGORIZED LOW NUTRITION RISK. PATIENT WILL BE SEEN WITHIN 7 DAYS OF ADMISSION. 01/20/[address]
--- NOTE | 2020-01-14 09:23 | NUR ---
Steam Generating Powerplant Mechanic Note: Basic Screen: Yes High Risk DC Screen [place]: SABRA FULLER [place] Relationship: [facility] HOUSING TEAM - NURSE Pre-Admission Living Arrangements: Other Prior ADL Independent Current Home Health Name/Tel: N/A Current DME/02 Name/Tel: N/A Current Hospice Name/Tel: N/A Current Dialysis Name/Tel: N/A Healthcare Decision Maker: Patient Advance Directive No Physician Orders for Life Sustaining Treatment Form No Discipline: Case Mgt/Social Svcs Tentative Discharge Plan/Destination: SNF/ECF Will require assistance post discharge: No Referred to Lead Level Designer: No Tentative Discharge Plan Summary: Patient is a 74-year-old male admitted for medical clearance/5150 - gravely disabled. Patient has PMHX of dementia and hypertension. Patient was admitted by [facility]. MARGO contacted Sabra Welchjoseyashira [phone]. MARGO was informed that Sabra is a nurse with [facility] Housing Team. Sabra stated that patient was brought in for medical clearance to find placement. Sabra also reported that patient had an unsteady gait and hx of dementia and instructed PD to bring patient to emergency room. Sabra requested clinical packet to assist in finding placement for patient. MARGO will fax clinical packet to Sabra and follow up with [facility] Team. Signature: ALEXA [place] Date: Jan 14, 2020 Time: 09:22 Addendum: 01/14/20 at 0930 by Rodrigue Barrera MARGO faxed clinical packet to Sabra Fuller - [facility] Housing Team - [phone]. MARGO will follow up with Sabra. Addendum: 01/14/20 at 1536 by Rodrigue Barrera SS SW contacted [facility] team and spoke to Flex [phone]. Per Flex, [facility] team was informed of patient by [facility] outreach team yesterday prior to patient's admission. MARGO contacted Sabra Chan and left voicemail [phone]. MARGO will follow up.
--- NOTE | 2020-01-14 09:28 | NUR ---
CC still aware of Pt and will continue to locate placement
--- NOTE | 2020-01-14 09:33 | NUR ---
spoke with mildred from [facility] who confirmed they are also looking for placement for Pt.
--- NOTE | 2020-01-14 09:55 | NUR ---
Spoke with Mike at [facility] who confirmed he has the packet and is pending review. N o beds available at the moment
--- NOTE | 2020-01-14 10:06 | NUR ---
Packet has been faxed to the following facilities for review: [facility]
--- NOTE | 2020-01-14 10:23 | NUR ---
Packet faxed to [facility] for review.
--- NOTE | 2020-01-14 13:07 | NUR ---
Spoke with Kurt at [facility] Per kurt pt has been denied due to history of dementia and pt potentially being a placement issue
--- NOTE | 2020-01-14 13:08 | NUR ---
No beds at the following facilities: [facility]
[2020-01-14 13:20] VITALS: BP 175/92
--- NOTE | 2020-01-14 13:20 | NUR ---
Patient stable at this time with no distress noted.
--- NOTE | 2020-01-14 14:40 | NUR ---
Message left for Sabra @ [facility] Housing Unit in regards to disposition
--- NOTE | 2020-01-14 15:20 | NUR ---
DISCHARGE PLANNING: THIS IS A 74 Y/O MALE PATIENT (HOMELESS), WHO WAS BROUGHT IN FOR MEDICAL CLEARANCE. INITIAL DIAGNOSIS OF 5150 GRAVELY DISABLED. PAST MEDICAL HISTORY OF DEMENTIA AND HTN. CURRENT LABS INCLUDE [facility]A 24/10.7. UDS NEGATIVE. NO CONSULTS AT THIS TIME. DC PLAN PENDING PLACEMENT. Addendum: 01/15/20 at 1158 by Rodrigue Barrera MARGO faxed clinicals to [facility], [facility], [facility], [facility], and [facility]. MARGO will follow up with facilities. Addendum: 01/15/20 at 1325 by Rodrigue Barrera MARGO spoke with Mary from [facility] who stated that there were no beds available. MARGO spoke with Junior from [facility] who stated that no beds were available. MARGO spoke with Mercedes from [facility] who stated that no beds were available. MARGO spoke with Alireza from [facility] who stated that patient has been to [facility] before and left A both times. Per Alireza, director refused to take patient. MARGO faxed clinicals to [facility] and [facility]. Addendum: 01/15/20 at 1332 by Rodrigue Barrera MARGO spoke with Suzie from [facility] who stated that no beds were available. MARGO spoke with Dixie from [facility] who stated that DON was unable to accept patient at this time. MARGO will fax clinicals to additional SNFs. Addendum: 01/15/20 at 1343 by Rodrigue Barrera MARGO faxed clinicals to: [facility] [phone], [facility] [phone], and [facility] [phone]. MARGO will follow up. Addendum: 01/15/20 at 1349 by Rodrigue Barrera MARGO faxed clinicals to [facility] [address] [phone], [facility] [phone], [facility] [phone], [facility] [phone], [facility] Frannie [place] [phone], [facility] [phone]. MARGO will follow up. Addendum: 01/15/20 at 1417 by Rodrigue LOPEZ MARGO sent clinicals to [facility] and [facility]. Addendum: 01/15/20 at 1551 by Rodrigue LOPEZ MARGO contacted the following facilities. Ary from [facility] stated that no beds are available. [facility] stated that they are not taking any admissions due to COVID. [facility] did not answer. Addendum: 01/16/20 at 1018 by Rodrigue LOPEZ MARGO was contacted by Malika from [facility] [address]. Malika stated that facility is currently not taking admissions. MARGO faxed clinicals to [facility] Addendum: 01/16/20 at 1039 by Rodrigue Barrera MARGO contacted Jessica from [facility] [phone]. Per Jessica, facility did not receive fax. Jessica provided e-fax number [phone]. MARGO faxed clinicals to [facility]. MARGO contacted Cuca from [facility] [phone]. Per Cuca, [facility] is reviewing clinicals and she will contact MARGO. MARGO provided [facility] Human Resources Assistant Manager Janet Epstein's contact information [phone]. MARGO will follow up. Addendum: 01/16/20 at 1304 by Rodrigue Barrera MARGO contacted [facility] and requested to speak to Jessica. Breana stated that Jessica was not available at this time and that she will return MARGO's phone call. MARGO contacted Cuca from [facility] [phone]. Per Cuca, [facility] was unable to accept patient due to unclear discharge plan. MARGO informed [facility] CM Janet Epstein [phone]. Janet stated that she received an email saying that both facilities were accepting facilities and she will contact facilities. MARGO will follow up. Addendum: 01/16/20 at 1310 by Rodrigue Barrera Mary Jane from [facility] stated that they are not accepting admissions. Federico Alvarado stated they would return MARGO's phone call. MARGO will continue to follow up. Addendum: 01/16/20 at 1318 by Rodrigue Barrera MARGO contacted [facility] Housing Team Nurse Sabra Fuller [phone] to follow up regarding placement for patient. MARGO informed Sabra of facilities that is unable to accept patient. Sabra stated she would assist in calling facilities. MARGO will follow up. Addendum: 01/16/20 at 1424 by Rodrigue Barrera MARGO faxed In-Hospital Notice Re Lack of Adequate Network for Post-Discharge Care form to [facility]. MARGO spoke with patient and provided patient with board and care contact: Leanna [phone]. Patient stated he would contact Leanna. Addendum: 01/16/20 at 1517 by Rodrigue Barrera MARGO assisted patient in calling Leanna with Room and Board. Patient stated he is agreeable to plan if he is able to find transportation. MARGO spoke with Leanna who stated that he would be able to provide transportation to board and care at [address] [place] [address] Dr. Segura, [place] [address]. MARGO told Leanna that he would contact him regarding patient's discharge plan. Addendum: 01/16/20 at 1536 by Rodrigue LOPEZ MARGO contacted Leanna who stated that he would be able to provide transportation at 900am tomorrow. MARGO Sahni. Addendum: 01/16/20 at 1539 by Rodrigue LOPEZ MARGO contacted Vivienne Sahni who is providing clothing for patient for discharge tomorrow at 9:00AM. Addendum: 01/17/20 at 0841 by Rodrigue LOPEZ MARGO contacted Leanna who stated that he will transport patient to [facility] Room and Board and that he is on the way. Nurse was informed. Addendum: 01/17/20 at 0926 by Shandra Mello CM DC PLANNING: CALLED [facility] [phone] , SPOKE WITH SHERLEY SIZING MACHINE AND DRIER OPERATOR SHE CAN ACCEPT PT AND CAN GO TO ROOM 208 B NOTIFIED [facility] CHIN AUTH # [id number] AND LEANNA CRONIN WILL PICK HIM UP . CM TO FOLLOW
--- NOTE | 2020-01-14 15:30 | NUR ---
Paged Dr. Napoles for order for elevated BP. Order received and carried out. Patient stable.
[2020-01-14] MEDS: cloNIDine 0.1 MG TAB PO PRN (15:31)
[2020-01-14 16:00] VITALS: BP 184/89
--- NOTE | 2020-01-14 18:50 | NUR ---
Patient doctor for persistent high blood pressure. Per Cathy at exchange, Dr. Laurent is application packaging specialist. Awaiting call back. Will endorse to night nurse.
--- NOTE | 2020-01-14 19:10 | NUR ---
Received call back from Dr. Laurent. New order given: hydralazine 10mg IVP, q4h PRN for SPB > 160. Information relayed to night nurseMacy.
--- NOTE | 2020-01-14 19:30 | NUR ---
RECEIVED FROM AM RN IN BED SITTING UP AND WATCHING TV. NO COMPLAINTS DONE. WILL CONTINUE WITH CARE FOR THE NIGHT. CALL LIGHT WITH IN REACH. ASSISTED WITH ADLS. DX. 5150 RT GRAVELY DISABLED.
--- NOTE | 2020-01-14 19:50 | NUR ---
CHECKED BP AT THIS TIME AND PT. IS LAYING DOWN ON HIS RIGHT SIDE READY TO SLEEP. BP CHECKED AND IT IS 137/73 WITH PULSE RATE OF 56. ABLE TO CARRY ON A GOOD CONVERSATION WITH ME. ASKED IF HE IS HUNGRAY AND HE ANSWERED "NOT AT THIS TIME" CALL LIGHT WITH IN REACH. RE-ORIENTED TO ROOM AND CALL LIGHT.
[2020-01-14 20:00] VITALS: BP 137/73
--- NOTE | 2020-01-14 21:01 | NUR ---
[facility] still aware of patient. Will continue to seek placement
--- NOTE | 2020-01-14 21:13 | NUR ---
[facility] s/w Radha, still no beds available. "All full tonight" [facility] s/w Paulo, still no beds. "All Full". [facility] s/w Patricia at capacity
--- NOTE | 2020-01-14 21:23 | NUR ---
[facility] no answer. Will try again [facility] s/w Jabari "All Full Tonight"
--- NOTE | 2020-01-14 22:00 | NUR ---
PT. CLEANED UP BY CNAS RT WITH BM. ABLE TO USE URINAL NOTED. ABLE TO VERBALIZE NEEDS IN [place]. CALL LIGHT WITH IN REACH.
[2020-01-15] VITALS: BP 149/74
--- NOTE | 2020-01-15 01:33 | NUR ---
SLEEPING. NO RESTLESSNESS.
--- NOTE | 2020-01-15 03:21 | NUR ---
PT. SLEEPING WELL. NO RESTLESSNESS. CALL LIGHT WITH IN REACH AND PT. NEAR NURSING STATION FOR EASY VISIBILITY.
--- NOTE | 2020-01-15 04:54 | NUR ---
Still no beds at any of the designated facilities. Will endorse to incoming shift to seek further placement throughout their shift
--- NOTE | 2020-01-15 05:40 | NUR ---
PERSONAL HYGIENE BY AM RN DONE AT THIS TIME. PT. ABLE TO VERBALIZE NEEDS WELL IN [place]. NOTED WITH BOUTS OF INCONTINENCE TO B AND B. AT TIMES PT. USES URINAL TO URINATE. SLEPT WELL THIS SHIFT.
--- NOTE | 2020-01-15 07:25 | NUR ---
RECEIVED REPORT FROM NIGHT NURSE. PATIENT IS IN BED, ASLEEP, RESPIRATION EVEN AND UNLABORED. SKIN WARM AND DRY TO TOUCH. BED IN LOW POSITION. CALL LIGHT WITHIN REACH. NO DISTRESS NOTED.
[2020-01-15 08:00] VITALS: BP 186/91
--- NOTE | 2020-01-15 08:20 | NUR ---
Received report from assembler 1st shift. There are still no beds at this time. [facility] still working on placement.
[2020-01-15] MEDS: hydrALAZINE 20 MG/ML VIAL IVP PRN ×2 (09:03→17:29)
--- NOTE | 2020-01-15 10:05 | NUR ---
PT AT BEDSIDE.
[2020-01-15 10:30] VITALS: BP 153/88
--- NOTE | 2020-01-15 12:00 | NUR ---
PATIENT EATING LUNCH. NO DISTRESS NOTED.
--- NOTE | 2020-01-15 15:00 | NUR ---
PATIENT AAOX4. NO DISTRESS NOTED. PATIENT IN BED, CALL LIGHT WITHIN REACH.
[2020-01-15] MEDS ORDERED: AMLO2.5T PO (15:08)
[2020-01-15 16:00] VITALS: BP 186/96
--- NOTE | 2020-01-15 17:00 | NUR ---
ROUNDS MADE. PATIENT REMAINS STABLE. AAOX4. NO DISTRESS NOTED.
[2020-01-15 19:00] VITALS: BP 147/70
--- NOTE | 2020-01-15 19:05 | NUR ---
REPORT GIVEN TO NIGHT NURSE FOR CONTINUITY OF CARE. PATIENT STABLE.
--- NOTE | 2020-01-15 19:30 | NUR ---
RECEIVED BEDSIDE REPORT FROM AM SHIFT RN FOR PT'S CONTINUITY OF CARE. PT IS ASLEEP WITH NO SIGNS OF DISTRESS. PT WAS ADMITTED FOR GRAVELY DISABLED, PT IS ON ROOM AIR, AND HAS LEFT AC 20G SALINE LOCK. SAFETY MEASURES IN PLACE, AND CALL LIGHT IS WITHIN REACH. WILL MONITOR PT THROUGHOUT SHIFT.
--- NOTE | 2020-01-15 20:30 | NUR ---
WOKE UP PT FOR ASSESSMENT. PROVIDED PT SOME SNACKS, PT TOLERATED IT WELL. PT DENIES ANY PAIN OR DISCOMFORT. EXPLAINED TO PT THE ELECTROLYTIC ETCHER ROUTINE, PT VERBALIZED UNDERSTANDING. SAFETY MEASURES IN PLACE, AND CALL LIGHT IS WITHIN REACH. WILL CONTINUE TO MONITOR PT.
--- NOTE | 2020-01-15 23:00 | NUR ---
PT ASLEEP WITH NO SIGNS OF DISTRESS. WILL CONTINUE TO MONITOR PT.
[2020-01-16] VITALS: BP 149/80
--- NOTE | 2020-01-16 01:30 | NUR ---
MADE ROUNDS. PT BRIEFLY OPENED HIS EYES THEN WENT RIGHT BACK TO SLEEP. NO SIGNS OF DISTRESS NOTED. WILL CONTINUE TO MONITOR PT.
--- NOTE | 2020-01-16 04:00 | NUR ---
MADE ROUNDS. PT ASLEEP WITH NO SIGNS OF DISTRESS. WILL CONTINUE TO MONITOR PT.
--- NOTE | 2020-01-16 06:20 | NUR ---
PT ASLEEP WITH NO SIGNS OF DISTRESS. WILL ENDORSE PT TO AM SHIFT RN FOR PT'S CONTINUITY OF CARE.
[2020-01-16] MEDS: hydrALAZINE 20 MG/ML VIAL IVP PRN (07:02)
--- NOTE | 2020-01-16 07:02 | NUR ---
PT BP 185/92 HR 60 TAKEN BY CONSULTING SENIOR PRACTICE DIRECTOR, ADMINISTERED PRN IVP HYDRALAZINE ORDERED. PT PROVIDED WITH SNACKS. DENIES ANY PAIN OR DISCOMFORT. WILL ENDORSE TO AM SHIFT RN FOR REASSESSMENT.
--- NOTE | 2020-01-16 07:08 | NUR ---
Received report from manager shift. There are no beds at this time.
--- NOTE | 2020-01-16 07:10 | NUR ---
RECEIVED REPORT FROM NIGHT NURSE, PT IS STABLE AND ON ROOM AIR. SAFETY MEASURES IN PLACE CALL LIGHT WITH IN REACH.
[2020-01-16 08:00] VITALS: BP 156/75
--- NOTE | 2020-01-16 09:30 | NUR ---
REASSESSED PT BLOOD PRESSURE. BP 156/75 AND PULSE RATE OF 98. PT IS STABLE. WILL CONTINUE TO MONITOR.
--- NOTE | 2020-01-16 12:30 | NUR ---
PT IS EATING HIS LUNCH AND NO DISTRESS NOTED SAFETY MEASURES IN PLACE AND CALL LIGHT WITHIN REACH. WILL CONTINUE TO MONITOR,
--- NOTE | 2020-01-16 15:53 | NUR ---
Call Center spoke with Community Placement Worker, Rodrigue Barrera, advised patient will be placed tomorrow 01/17/20 at a Room & Board. Rodrigue was made aware and agreed to have Call Center discontinue attempts for inpatient psych placement.
[2020-01-16 16:00] VITALS: BP 171/89
[2020-01-16] MEDS: cloNIDine 0.1 MG TAB PO PRN (17:48)
--- NOTE | 2020-01-16 17:49 | NUR ---
CHECK VITAL SIGNS BP 171/89 IL; 64. GAVE BP MEDICATIONS PRN.WILL CONTINUE TO MONITOR.
--- NOTE | 2020-01-16 18:00 | NUR ---
PT IS EATING AND IN STABLE CONDITION.
--- NOTE | 2020-01-16 19:05 | NUR ---
ENDORSED PT TO NIGHT NURSE. PT IS STABLE.
--- NOTE | 2020-01-16 19:06 | NUR ---
RECD. RESTING IN BED, AWAKE, A/0X2. REORIENTED TO HOSPITAL SETTING. APPEARS WEAK. RESPIRATION EVEN AND UNLABORED. IV SALINE LOCK AT THE LEFT AC G20, PATENT AND INTACT. SAFETY MEASURES ENFORCED. BED IN THE LOWEST POSITION. SIDE RAILS UP. BED ON ALARM. PLAN OF CARE DISCUSSED. SEEMS NOT TO MIND. NO APPEARANCE OF PAIN NOTED, FLACC - 0.
--- NOTE | 2020-01-16 19:30 | NUR ---
BP REASSESSED, 133/68, HR -67. NO APPEARANCE OF DISCOMFORT NOTED 0/10.
[2020-01-16 20:00] VITALS: BP 133/68
--- NOTE | 2020-01-16 21:00 | NUR ---
SLEEPING COMFORTABLY IN BED.
--- NOTE | 2020-01-16 23:00 | NUR ---
COMFORTABLE IN BED, LYING ON HIS RIGHT SIDE SLEEPING.
--- NOTE | 2020-01-17 04:00 | NUR ---
STILL SLEEPING COMFORTABLY, NO APPEARANCE OF DISTRESS.
--- NOTE | 2020-01-17 07:04 | NUR ---
ABLE TO SLEEP WELL. CONDITION REMAIN STABLE. ENDORSED TO AM SHIFT NURSE FOR CONTINUITY OF CARE.
--- NOTE | 2020-01-17 07:05 | NUR ---
RECEIVED REPORT FROM NIGHT NURSE, PT IS SLEEPING AND IN STABLE CONDITION. ON ROOM AIR. SAFETY MEASURES IN PLACE CALL LIGHT WITHIN REACH. WILL CONTINUE TO MONITOR.
--- NOTE | 2020-01-17 08:24 | NUR ---
CHECK VITAL SIGNS AND BP 188/99 NE 66. GAVE BP MEDICATIONS. WILL CONTINUE TO MONITOR.
[2020-01-17] MEDS ORDERED: amLODIPine 5 MG TAB PO SCH ×2 (09:00→09:40)
[2020-01-17] MEDS ORDERED: AMLO5TAB PO (09:41)
--- NOTE | 2020-01-17 10:15 | NUR ---
DISCHARGED PT TO [facility] . DISCHARGED INSTRUCTIONS PROVIDED TO THE PT AT BEDSIDE. GIVEN REPORT TO GERMAN FROM [facility]. ANSWERS ALL THE PATIENTS QUESTION. REMOVED ALL ID BANDS AND IV. IV INTACT AND COMPLETED. PT IS CHANGED TO PT OWN CLOTHES . PT TOOK ALL HIS BELONGINGS.PT WAS TAKEN BY LEANNA THE TRANSPORTOR.ROLL EDGE STITCHER HAND ESCORTED THE PATIENT AND HIS BP 154/70, PT IS STABLE.
== END 2020-01-17 10:15 | DRG 757 ==
LOC: MED 12:55 → MTU 22:29
PROVIDERS: ADMIT Hospitalist; ATTEND Hospitalist
DX: F03.90 Unspecified dementia, unspecified severity, without behavioral disturbance, psychotic disturbance, mood disturbance, and anxiety (principal); N17.0 Acute kidney failure with tubular necrosis; E43 Unspecified severe protein-calorie malnutrition; E86.0 Dehydration; Z68.20 Body mass index [BMI] 20.0-20.9, adult; R64 Cachexia; M19.90 Unspecified osteoarthritis, unspecified site; I10 Essential (primary) hypertension; Z59.0 Homelessness; Z79.899 Other long term (current) drug therapy
CPT/HCPCS: 36415; 80053; 80305; 81001; 85025; 87081; 96360; 96361; 97110; 97116; 97161-GP; 97530; 99285; G0482; J0360